=== PATIENT | male | born 1955 | race Caucasian/White ===

== ENCOUNTER 2024-09-19 14:04 | Emergency (ER) | payer MEDICARE, MEDICAID, SELFPAY ==
--- NOTE | 2024-09-19 14:16 | EDNOTE_ITS ---
ED General RME/HPI General Chief complaint: GI Bleed Stated complaint: HAVE A HEMMORHOID AND LOST ALOT OF BLOOD X AM Time Seen by Provider: 09/19/24 14:09 Arrival date/time: 09/19/24 14:04 RME / HPI RME / HPI narrative: DR. PAULSON MAIN ED EVALUATION: This section includes all my notes and documentations, including HPI, PE, and ED course.? Elio Paulson MD HPI: 69 year old male with past medical history significant for stomach ulcers and hemorrhoids for years presents to the Emergency Department with complaint of hemorrhoids with associated bleeding for a couple of weeks. No abdominal pain. No vomiting. No fever. Symptoms are moderate. No fevers or chills. No other complaints reported. ROS: All negative except as documented in HPI. Physical Exam: General:? Alert and oriented.? No acute distress when remaining still.? Eyes:? Conjunctivae and lids clear. ENT:? No nasal congestion.? ? Neck:? Supple. Heart:? RRR. Lungs:? No respiratory distress.? Good air movement.? No rhonchi, wheezing, rales.? Abdomen:? Soft and nontender.? Rectal: There are a lot of external hemorrhoids noted, no thrombosed hemorrhoids. Legs:? No clubbing, cyanosis, edema. Skin:? Warm and dry.? Neuro:? Alert and oriented X 3.? At this point, diagnoses include external hemorrhoids Recommended conservative treatment and more outpatient workup. Based on my best medical judgment, made decision no further evaluation or treatment indicated at this time.? Patient understands and agrees to the discharge instructions customized and printed, see below. Discharge instructions from Dr. Paulson: ?After evaluation, your symptoms are due to hemorrhoids.? ?Use Anusol suppositories for 2 weeks as prescribed to help heal your hemo rrhoids. ?During bowel movements, avoid pushing too hard which can cause hemorrhoids. ?To help prevent hard stools, increase oral fluid and maintain clear urine (if dark or yellow, increase oral fluid).? And increase every day exercising and eating fresh fruits and fresh vegetables. ?Sitz bath in warm water and Epsom salt for 15 minute 2 or 3 times daily until your hemorrhoids resolve. ?See a private doctor on 09/21/2024 for recheck and further care. To make sure there is no serious intra-abdominal condition, ask to help you get more care not available here in the ER.? Such as EGD or in the stomach, colonoscopy or scoping the colon, and a referral to see a barrel straightener. ?Seek immediate medical care with worsening or with any concerns. Elio Paulson MD Related Data Home Medications ?Medication ?Instructions ?Recorded ?Confirmed carvedilol 6.25 mg tablet 6.25 mg PO BID 06/25/1908/18 docusate sodium 250 mg capsule 250 mg PO QDAY 06/25/19 08/27/19 (DOK) losartan 100 mg tablet 100 mg PO QDAY 06/25/1908/18 metformin 500 mg tablet 500 mg PO BID 06/25/1908/27 Previous Rx's ?Medication ?Instructions ?Recorded hydrocodone 10 mg-acetaminophen 1 tab PO Q6H PRN Pain #40 tabs 08/29/19 325 mg tablet rivaroxaban 10 mg tablet (Xarelto) 10 mg PO Q24H #12 t abs 08/29/19 hydrocortisone acetate 25 mg 25 mg OR BID #24 ea 09/19 rectal suppository (Anusol-HC) Allergies Allergy/AdvReac Type Severity Reaction Status Date / Time No Known Allergies Allergy Verified 09/19/24 14:07 Course Quality Measures none Vital Signs Vital signs: Vital Signs Temperature 98.1 F 09/19/24 14:17 Pulse Rate 87 09/19/24 14:17 Respiratory Rate 16 09/19/24 14:17 Blood Pressure 122/77 09/19/24 14:17 Pulse Oximetry (%) 99 09/19/24 14:17 Oxygen Delivery Method Room Air 09/19/24 14:17 [facility] Patient data External records reviewed:: [facility] previous records (Reviewed last physical therapy note dated 09/29/20) Clinical information provided by:: patient Social determinants that could affect healthcare access:: none Patient has the following chronic illnesses:: stomach ulcers and hemorrhoids for years How is presenting disease/condition affected by chronic disease/condition?: exacerbated by Evaluation data The following diagnostics were reviewed and interpreted by me:: other (specify) (none) Lab and/or radiology exams considered but not ordered:: none Interpretation Summary: external hemorrhoids Medications Medications considered but not ordered:: none Medication administrations:: none Consultations Consultation(s) initiated? (list below): No Diagnosis Differential Diagnosis ED Complaint MDM: internal hemorrhoids, external hemorrhoids Most likely diagnosis given after review of the tests above:: external hemorrhoids Admission Indicated Admission indicated?: not indicated Explain why admission is indicated or not indicated:: There is no indication for admission. Admission Request Was there a request for admission?: No Disposition Plan Disposition Plan: Discharge Discharge Attestation Discharge Attestation: The patient and all family members were given an opportunity to ask questions and understood the discharge instructions. Discharge instructions specifically effects, indications for sooner follow up or return to the emergency department, and the expected course of current diagnosis. Patient condition: Stable Medical Decision Making MDM Narrative MDM Narrative: Sruthi Gamboa am scribing for and in the presence of Dr. Paulson. Differential Diagnosis Differential Diagnosis: internal hemorrhoids, external hemorrhoids Discharge Plan Plan Patient Disposition: HOME (Self Care) Prescriptions/Referrals Prescriptions/Med Rec: New hydrocortisone acetate [Anusol-HC] 25 mg suppository 25 mg OR BID Qty: 24 0RF No Action hydrocodone-acetaminophen 10-325 mg Tablet 1 tab PO Q6H MDD 6 PRN (Reason: Pain) Qty: 40 0RF Xarelto 10 mg Tablet 10 mg PO Q24H Qty: 12 0RF metformin 500 mg Tablet 500 mg PO BID docusate sodium [DOK] 250 mg Capsule 250 mg PO QDAY carvedilol 6.25 mg Tablet 6.25 mg PO BID losartan 100 mg Tablet 100 mg PO QDAY Problem List Clinical Impression: Hemorrhoids Patient/Caregiver Discharge Instructions Discharge Activity: activity as tolerated Education Materials: ED Hemorrhoids Additional Instructions: Discharge instructions from Dr. Paulson: ?After evaluation, your symptoms are due to hemorrhoids.? ?Use Anusol suppositories for 2 weeks as prescribed to help heal your hemorrhoids. ?During bowel movements, avoid pushing too hard which can cause hemorrhoids. ?To help prevent hard stools, increase oral fluid and maintain clear urine (if dark or yellow, increase oral fluid).? And increase every day exercising and eating fresh fruits and fresh vegetables. ?Sitz bath in warm water and Epsom salt for 15 minute 2 or 3 times daily until your hemorrhoids resolve. ?See a private doctor on 09/21/2024 for recheck and further care. To make sure there is no serious intra-abdominal condition, ask to help you get more care not available here in the ER.? Such as EGD or in the stomach, colonoscopy or scoping the colon, and a referral to see a barrel straightener. ?Seek immediate medical care with worsening or with any concerns. Instrucciones de zaria del Dr. Paulson: ?Despu?s de la evaluaci?n, alisa s?ntomas se deben a hemorroides. ?Use supositorios Anusol karlene 2 semanas seg?n lo prescrito para ayudar a curar alisa hemorroides. ?Karlene las evacuaciones intestinales, evite empujar demasiado amber, ya que puede causar hemorroides. ?Para ayudar a prevenir las heces duras, aumente el l?quido oral y mantenga la orina dulce (si es oscura o amarilla, aumente el l?quido oral). Y aumente todos los d?as el ejercicio y el consumo de frutas y verduras frescas. ?Ba?o de asiento en agua tibia y hima de Epsom karlene 15 minutos 2 o 3 veces al d?a hasta que se resuelvan alisa hemorroides. ?Consulte a un m?dico privado el 09/21/2024 para volver a controlarlo y recibir m?s atenci?n. Para asegurarse de que no haya surjit afecci?n intraabdominal grave, pida ayuda para obtener m?s atenci?n que no est? disponible aqu? en la rahat de emergencias, joshua EGD o en el est?karie, colonoscopia o endoscopia del colon y surjit derivaci?n para jordi a un gastroenter?logo. ?Busque atenci?n m?dica inmediata si empeora o tiene alguna inquietud. Print Language: Bulgarian Stand Alone Forms: Tiffanie Award Info., Patient Portal Info Letter
[2024-09-19 14:17] VITALS: BP 122/77; PULSE 87; RESP 16; TEMP 36.7; O2SAT 99
== END 2024-09-19 17:43 | disposition home or self-care (01) ==
LOC: SERX 14:40
PROVIDERS: Emergency Provider Emergency Medicine; PCP Family Medicine
DX: K64.9 Unspecified hemorrhoids (principal)
CPT/HCPCS: 99281

== ENCOUNTER → 2025-06-10 | Outpatient (CLI) | payer MEDICARE, MEDICAID, SELFPAY ==
--- NOTE | 2025-06-10 13:59 | XR_ITS ---
EXAMINATION: Left knee 2 views TECHNIQUE: AP lateral left knee 2 views Date and time: June 10, 2025, 1416 hours INDICATIONS: Left knee pain beginning 5 years ago. FINDINGS: Advanced tricompartment osteoarthritis Severe osteopenia. No fracture. Small knee effusion IMPRESSION: Advanced left knee tricompartment osteoarthritis
--- NOTE | 2025-06-10 13:59 | XR_ITS ---
EXAMINATION: Bilateral knees single view TECHNIQUE: AP bilateral standing knees single view Date and time: June 10, 2025, 1415 hours INDICATIONS: Left knee pain 5 years. FINDINGS: Severe osteopenia Total right knee arthroplasty with satisfactory alignment No loosening of the prosthetic components Severe narrowing medial lateral joint spaces left knee IMPRESSION: Severe narrowing medial lateral joint spaces left knee
== END | disposition home or self-care (01) ==
PROVIDERS: PCP Family Medicine; Referring Provider Family Medicine; Visit Provider Family Medicine
DX: M17.12 Unilateral primary osteoarthritis, left knee (principal); M25.862 Other specified joint disorders, left knee
CPT/HCPCS: 73560; 73565

== ENCOUNTER 2025-06-29 18:23 | Inpatient (IN) | payer MEDICARE, MEDICAID, SELFPAY ==
[2025-06-29] VITALS (7 sets, daily range): BP systolic 157–201; BP diastolic 87–109; PULSE 85–104; RESP 14–95; TEMP 36.4–37.7; O2SAT 96–98
--- NOTE | 2025-06-29 18:32 | EKG_ITS ---
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
--- NOTE | 2025-06-29 18:34 | PD.EDADULT ---
ED General RME/HPI General Chief complaint: GI Bleed Stated complaint: WEAKNESS Time Seen by Provider: 06/29/25 18:28 Arrival date/time: 06/29/25 18:23 70-year-old male patient with significant history of hypertension, history of upper GI bleed in the past, history of chronic alcoholism, was brought in by EMS for evaluation regarding generalized body weakness. Apparently patient was crawling, and becoming so weak and instead was lying in the floor since last night. Family visited the patient since he was not answering the phone today. And calling EMS. When the EMS arrived patient was noted to have melanotic stool scattered all over the floor. Patient is awake and alert GCS of 15 however very drowsy. Patient denies any abdominal pain. Denies any other complaints patient is able to move the upper and lower extremity without any limitation. Related Data Home Medications ?Medication ?Instructions ?Recorded ?Confirmed carvedilol 6.25 mg tablet 6.25 mg PO BID 06/25/19 08/27/19 docusate sodium 250 mg capsule 250 mg PO QDAY 06/25/19 08/27/19 (DOK) losartan 100 mg tablet 100 mg PO QDAY 06/25/19 08/27/19 metformin 500 mg tablet 500 mg PO BID 06/25/19 08/27/19 Previous Rx's ?Medication ?Instructions ?Recorded hydrocodone 10 mg-acetaminophen 1 tab PO Q6H PRN Pain #40 tabs 08/29/19 325 mg tablet rivaroxaban 10 mg tablet (Xarelto) 10 mg PO Q24H #12 tabs 08/29/19 hydrocortisone acetate 25 mg 25 mg AR BID #24 ea 09/19/24 rectal suppository (Anusol-HC) Allergies Allergy/AdvReac Type Severity Reaction Status Date / Time No Known Allergies Allergy Verified 06/29/25 18:52 Review of Systems Review of Systems Narrative Review of Systems: Review of system reviewed and within normal limits except mentioned in HPI ED Exam Narrative Physical exam: VITAL SIGNS: Reviewed. GENERAL APPEARANCE: Alert and interactive, follows commands, no acute distress, HEAD AND FACE: Non-traumatic. ENT: PERRL, pale conjunctiva, eyelid no trauma, Mucous membrane moist. NECK: Supple, nontender, no nuchal rigidity. CHEST: No tenderness, no crepitus, no paradoxical movement, no retractions. LUNGS: Clear, well ventilated, symmetric, no rales, no wheezing, no ronchi, no stridor, good breath sounds bilaterally. HEART: Regular rate, regular rhythm, no murmur, no gallops. ABDOMEN: Soft, positive bowel sounds, nondistended, no guarding, nontender, no rebound, no masses, RECTAL: Deferred. GENITAL: Deferred. NEUROLOGICAL: Gross motor function intact sensory function intact, Appropriate for age. MUSCULOSKELETAL: low back nontender, full range of motion. EXTREMITIES: Nontender, full range of motion. SKIN: Color pale, dry, no rash, no lacerations, no abrasions, no contusions. LYMPHATICS: Deferred. Course Quality Measures none Orders Category Date Time Status COVID-19 Screening Questionnaire NOW Care 06/29/25 20:34 Active Decision to Admit X1 Care 06/29/25 20:34 Active EKG (ED ONLY) *Do not use* NOW Care 06/29/25 18:32 Completed Endoscopy Consents .On arrival Care 06/29/25 20:36 Active Endoscopy Consents .On arrival Care 06/29/25 20:37 Active NPO NOW Care 06/29/25 20:31 Active NPO after Midnight ONCE Care 06/29/25 20:36 Active NPO after Midnight ONCE Care 06/29/25 20:37 Active Occult Blood,Stool (Nursing) NOW Care 06/29/25 18:32 Active Transfuse,blood/blood products ONCE Care 06/29/25 20:10 Active Consult to Gastroenterology Stat Cons 06/29/25 20:11 Ordered Diet NPO (NOW) Diet 06/29/25 20:31 Active Diet NPO after Midnight Diet 06/30/25 00:01 Active Diet NPO after Midnight Diet 06/30/25 00:01 Active EKG (ED Only) Stat Exams 06/29/25 18:32 Draft CBC Stat Lab 06/29/25 19:13 Completed CK [Creatine Kinase] Stat Lab 06/29/25 19:13 Completed Comprehensive Metabolic Panel Stat Lab 06/29/25 19:13 Completed Partial Thromboplastin Time Stat Lab 06/29/25 19:13 Completed Prothrombin Time with INR Stat Lab 06/29/25 19:13 Completed Troponin I Stat Lab 06/29/25 19:13 Completed Type and Screen Stat Lab 06/29/25 19:13 Results Urinalysis Stat Lab 06/29/25 18:32 Ordered prbc [Red Blood Cells] Stat Lab 06/29/25 19:13 Results Octreotide Acet Inj [SandoSTATIN Inj] Med 06/29/25 18:32 Discontinued 50 mcg IV X1 ONE Pantoprazole Inj [Protonix Inj] Med 06/29/25 18:32 Discontinued 80 mg IVP X1 ONE Ringers Lactated 1000 ml [Lactated Ringers] 1,000 ml Med 06/29/25 18:32 Discontinued IV 999 mls/hr Sodium Chloride 0.9% [Ns] 100 ml Med 06/29/25 18:33 Active Octreotide Acet Inj [SandoSTATIN Inj] 1,000 mcg IV 50 mcg/hr Vital Signs Vital signs: Vital Signs Temperature 99.8 F 06/29/25 18:28 Pulse Rate 104 H 06/29/25 18:28 Respiratory Rate 18 06/29/25 18:28 Blood Pressure 157/90 H 06/29/25 18:28 Pulse Oximetry (%) 97 06/29/25 18:28 Oxygen Delivery Method Room Air 06/29/25 18:28 Discharge Plan Plan Patient Disposition: Admit Acute Care w/in Hospital Discharge Disposition comment: Guarded Prescriptions/Referrals Prescriptions/Med Rec: No Action hydrocodone-acetaminophen 10-325 mg Tablet 1 tab PO Q6H MDD 6 PRN (Reason: Pain) Qty: 40 0RF Xarelto 10 mg Tablet 10 mg PO Q24H Qty: 12 0RF metformin 500 mg Tablet 500 mg PO BID docusate sodium [DOK] 250 mg Capsule 250 mg PO QDAY carvedilol 6.25 mg Tablet 6.25 mg PO BID losartan 100 mg Tablet 100 mg PO QDAY hydrocortisone acetate [Anusol-HC] 25 mg suppository 25 mg AR BID Qty: 24 0RF Referrals: Jean Marie Robledo MD [Primary Care Provider, Family Practice] - In 1 week Problem List Clinical Impression: Anemia, Acute upper GI bleed Patient/Caregiver Discharge Instructions Print Language: Mosotho Stand Alone Forms: Tiffanie Award Info., Patient Portal Info Letter MDM Narrative MDM hospital course (for use when minimal MDM required): 70-year-old male patient with significant history of hypertension, history of upper GI bleed in the past, history of chronic alcoholism, was brought in by EMS for evaluation regarding generalized body weakness. Apparently patient was crawling, and becoming so weak and instead was lying in the floor since last night. Family visited the patient since he was not answering the phone today. And calling EMS. When the EMS arrived patient was noted to have melanotic stool scattered all over the floor. Patient is awake and alert GCS of 15 however very drowsy. Patient denies any abdominal pain. Denies any other complaints patient is able to move the upper and lower extremity without any limitation. Patient's hemoglobin was noted to be 7.6, hematocrit of 23. CMP creatinine 1.6 BUN of 36 total creatinine kinase 683. EKG showed sinus tachycardia, ventricular to 104 bpm, no ST segment elevation depression noted. Patient received Protonix IV, Sandostatin IV bolus and currently on Sandostatin drip. Spoke with Dr. Mckeon, GI specialist on-call, who advised me to keep the patient n.p.o. and for endoscopy in the morning Case discussed with hospitalist, who admitted the patient. Medication Administration(s) Medication Administration History Octreotide Acetate 1,000 mcg/ (Sodium Chloride) 102 mls @ 5.1 mls/hr IV .Q20H [facility]; Protocol Stop: 07/04/25 18:33 Last Admin: 06/29/25 19:40 Dose: 50 mcg/hr, 5.1 mls/hr Documented By: BLAKE Discontinued Medications Lactated Ringer's (Lactated Ringers) 1,000 mls @ 999 mls/hr IV .Q1H1M ONE Stop: 06/29/25 19:32 Last Admin: 06/29/25 19:43 Dose: 999 mls/hr Documented By: BLAKE Octreotide Acetate (Octreotide Acet Inj 50 Mcg/Ml Vial) 50 mcg IV X1 ONE Stop: 06/29/25 18:33 Last Admin: 06/29/25 19:39 Dose: 50 mcg Documented By: BLAKE Pantoprazole Sodium (Pantoprazole Inj 40 Mg Vial) 80 mg IVP X1 ONE Stop: 06/29/25 18:33 Last Admin: 06/29/25 19:39 Dose: 80 mg Documented By: BLAKE Diagnosis Differential Diagnosis ED Complaint MDM: Upper GI bleed, anemia, generalized weakness chronic alcoholism Diagnoses ruled out and/or further discussions: Anemia, upper GI bleed
[2025-06-29] MEDS: OCTREOTIDE ACET INJ 50 mCg/ML VIAL IV (19:39)
[2025-06-29] MEDS: OCTREOTIDE ACET INJ 1,000 MCG in SODIUM CHLORIDE 0.9% 100 ML 5.1 MCG IV (19:40)
[2025-06-29] MEDS: RINGERS LACTATED 1000 ML 1,000 ML 999 ML IV (19:43)
[2025-06-29 20:01] LABS: Basophils # (Auto) 0.0 Thou/mm3 (0.0-0.2); Basophils % (Auto) 0 % (0-2.5); Eosinophils # (Auto) 0.0 Thou/mm3 (0.0-0.5); Eosinophils % (Auto) 0 % (0-10); Hematocrit 23.0 % (41.0-53.0); Immature Granulocytes Auto 0.06 Thou/mm3 (0.00-0.00); Lymphocytes # (Auto) 1.1 Thou/mm3 (1.0-4.8); Lymphocytes % (Auto) 9 % (10-50); Mean Corpuscular HGB Conc 33.0 g/dl (31.0-37.0); Mean Corpuscular Hemoglobin 23.8 pg (25.0-35.0); Mean Corpuscular Volume 72 fL (80-100); Monocytes # (Auto) 1.0 Thou/mm3 (0.0-0.8); Monocytes % (Auto) 8 % (0-12); Neutrophils # (Auto) 10.4 Thou/mm3 (1.8-7.7); Neutrophils % (Auto) 82 % (37-80); Nucleated Red Blood Cell # 0.00 Thou/mm3 (0.00-0.00); Nucleated Red Blood Cell % 0 /100 WBC (0); Platelet Count 229 Thou/mm3 (140-440); RDW Standard Deviation 50.4 fL (35.1-43.9); Red Blood Count 3.19 Miln/mm3 (4.50-5.90); White Blood Count 12.6 Thou/mm3 (3.8-10.6)
[2025-06-29 20:02] LABS: Hemoglobin 7.6 g/dL (13.5-16.0)
[2025-06-29 20:16] LABS: INR 1.1 (0.9-1.3); Partial Thromboplastin Time 24.2 Seconds (22.0-36.0); Prothrombin Time 11.5 Seconds (9.0-12.2)
[2025-06-29 20:19] LABS: Alanine Aminotransferase 12 U/L (10-49); Albumin, Serum 4.5 gm/dL (3.4-4.8); Albumin/Globulin Ratio 1.7 (1.2-2.2); Alkaline Phosphatase 58 U/L (46-116); Anion Gap 18 (7-16); Aspartate Amino Transferase 31 U/L (0-34); BUN/Creatinine Ratio 23 Ratio (12-20); Bilirubin,Total 0.5 mg/dL (0.3-1.2); Blood Urea Nitrogen 36 mg/dL (9-23); Calcium 9.2 mg/dL (8.3-10.6); Calcium (Corrected) 9.2 mg/dL (8.5-10.1); Carbon Dioxide 20.3 mMol/L (20.0-31.0); Chloride 105 mMol/L (98-107); Creatine Kinase 683 U/L (34-171); Creatinine (Component) 1.6 mg/dL (0.6-1.3); Globulin 2.7 gm/dL (2.3-3.5); Glucose 197 mg/dL (74-106); Osmolality,Calculated 298 (275-295); Potassium 4.4 mMol/L (3.4-5.1); Sodium 143 mMol/L (136-145); Total Protein 7.2 gm/dL (5.7-8.2); Troponin I 0.044 ng/mL (0.0-0.045); eGFR 47 See Note
--- NOTE | 2025-06-29 20:36 | PD.IMCONS ---
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 for clinical presentation of melena patient family had called 911 and patient was found flat on the floor with melanotic stools everywhere he does have a history of alcohol consumption as well as previous history of GI bleed He has also have underlying history of diabetes mellitus type 2 hypertension CVA as well as on blood thinners cc:: cc: Review of Systems Review of Systems ROS Unobtainable: unobtainable due to medical condition Past Medical History Surgical History OTHER SURGICAL HX: As in the history of present illness Meds Home Medications and Allergies Home Medications ?Medication ?Instructions ?Recorded ?Confirmed ?Type carvedilol 6.25 mg tablet 12.5 mg PO BID 06/25/19 06/30/25 History losartan 100 mg tablet 100 mg PO QDAY 06/25/19 06/30/25 History metformin 500 mg tablet 1,000 mg PO BID 06/25/19 06/30/25 History amlodipine 10 mg tablet 10 mg PO DAILY 06/30/25 06/30/25 History hydrochlorothiazide 25 mg tablet 25 mg PO DAILY 06/30/25 06/30/25 History omeprazole 20 mg capsule,delayed 20 mg PO DAILY 06/30/25 06/30/25 History release semaglutide 3 mg tablet (Rybelsus) 3 mg PO DAILY 06/30/25 06/30/25 History sitagliptin phosphate 50 mg tablet 50 mg PO DAILY 06/30/25 06/30/25 History (Andrewuvia) Allergies Allergy/AdvReac Type Severity Reaction Status Date / Time No Known Allergies Allergy Verified 06/29/25 18:52 Exam Vital Signs Temp Pulse Resp BP Pulse Ox O2 Del Method 99.9 F 98 16 191/87 H 98 Room Air 06/29/25 20:31 06/29/25 20:31 06/29/25 20:31 06/29/25 20:31 06/29/25 20:31 06/29/25 20:31 Constitutional Comments: Chronically ill-appearing Routine Respiratory Exam Comments: Normal to auscultation Routine Abdominal Exam Comments: Positive bowel sounds Results Labs 07/03/25 05:15 07/03/25 05:15 Labs: Short CBC 06/29/25 Range/Units 19:13 WBC 12.6 H (3.8-10.6) Thou/mm3 Hgb 7.6 L (13.5-16.0) g/dL Hct 23.0 L (41.0-53.0) % Plt Count 229 (140-440) Thou/mm3 BMP 06/29/25 19:13 Sodium 143 Potassium 4.4 Chloride 105 Carbon Dioxide 20.3 BUN 36 H Creatinine 1.6 H Glucose 197 H Calcium 9.2 Cardiac Enzymes 06/29/25 Range/Units 19:13 Total Creatine Kinase 683 H (34-171) U/L Troponin I 0.044 (0.0-0.045) ng/mL Liver Function 06/29/25 Range/Units 19:13 Total Bilirubin 0.5 (0.3-1.2) mg/dL AST 31 (0-34) U/L ALT 12 (10-49) U/L Alkaline Phosphatase 58 (46-116) U/L Albumin 4.5 (3.4-4.8) gm/dL Assessment and Plan Additional Assessment & Plan Additional Plan: # Acute GI bleed in the form of melena and the patient with previous history of alcohol consumption Suggestions Initial test fiberoptic esophagogastroduodenoscopy possible therapeutic intervention under intravenous moderate sedation consent obtained and placed-schedule In case the EGD is negative we will consider doing a fiberoptic colonoscopy prior to discharge Thank you very much for the opportunity to participate in the care of this patient other medical problems include diabetes mellitus type 2 essential hypertension CVA
[2025-06-29 20:50] LABS: Collection Type, Urine Clean Catch; Squamous Epithelial Cell,Urine 0 /hpf (0-5)
[2025-06-29 21:00] LABS: Bilirubin,Urine Negative (Negative); Blood,Urine 3+ (Negative); Color,Urine Orange (Lt Yel-Yel); Glucose, Urine Negative (Negative); Ketones,Urine Negative (Negative); Leukocyte Esterase,Urine Positive (Negative); Nitrite,Urine Positive (Negative); PH,Urine 5.0 (5.0-7.0); Protein,Urine 1+ (Neg - Trace); RBC,Urine < 1 /hpf (0-3); Specific Gravity,Urine 1.015 (1.001-1.035); Urobilinogen,Urine Negative mg/dL (0.0-1.0); WBC,Urine < 1 /hpf (0-5)
[2025-06-29 21:02] LABS: Clarity,Urine Turbid (Clear/Hazy)
--- NOTE | 2025-06-29 21:09 | ESHP_ITS ---
<Statement entered by Owen Delgado MD - 06/29/25 22:03> A 70-year-old male with significant past medical history of diabetes mellitus, hypertension, CVA, diverticulosis, chronic inactive gastritis, chronic alcoholic, history of upper GI bleed in 2019 with last colonoscopy done in 2019 that showed hemorrhoids, diverticulosis, upper GI endoscopy and 2018 that showed moderate gastritis, distal esophagitis presented to the hospital with chief complaints of bleeding per rectum since 2 days. Reported the bleeding is painless and noted to have severe dizziness for which he came to the hospital. Also reported that he had 3-4 episodes of vomiting without any blood. Denies pain medications, aspirin, Plavix usage. But noted to have naproxen refilled on 06/10/2025. Vitals at the time of admission are blood pressure 157/90 mmHg, pulse rate 104 bpm. Physical examination remains unremarkable except for blood noted from the anal region. Labs at the time of admission are significant for WBC 12.6, hemoglobin 7.6, MCV 72, MCH 23.8. Coagulation panel is within normal limits. Chemistry is significant for anion gap 18, BUN 36, creatinine 1.6. Baseline creatinine is 1 and 2020. 2 PRBC is ordered by the ED physician but patient noted to have antibodies for which the blood was ordered from the [facility]. Patient will be admitted to the hospital for upper GI bleed, RAFFI and we will start him on CIWA protocol. Consulted grants officer, Dr. Mckeon and he recommended pantoprazole, octreotide drip. Will keep him n.p.o. Started on IV fluids, 1 L bolus is given and will start on IV maintenance fluids. # GI bleed, likely diverticulosis versus internal hemorrhoids based on previous history - Had previous history of divericulosis and internal hemorrhoids. Had h/o constipation - Pantoprazole 80 mg IV push and 40 mg IV every 48 hourly. - N.p.o. GI consulted is consulted - Started on IV fluids - Octreotide in the setting of alcohol abuse and ceftriaxone 1gm for prophylaxis - Liver ultrasound to rule out cirrhosis - 2 PRBC transfusion in view of low hemoglobin, 7.6 - Will order iron panel in view of microcytic hypochromic anemia # Leukocytosis, likely secondary to hemoconcentration in the setting of vomitings and diarrheal episode secondary to GI bleed. - Will continue fluids - No suspicion of infection at this point - Will continue to monitor CBC # Non-anion gap metabolic acidosis # Acute kidney injury, likely prerenal - Patient reported that he had 3-4 episodes of vomiting and multiple episodes of diarrhea - Was given a liter of bolus and started on IV fluids - Will continue to monitor renal panel and avoid nephrotoxic medications - Strict I&O's # Chronic alcohol disorder - 1 dose of IV push thiamine 100 mg is given - Will start on CIWA protocol to treat alcohol withdrawal # Diabetes mellitus - A1c is ordered - Will start on insulin sliding scale # Hypertension - Blood pressure at the time of admission is 157/90 mmHg - Will hold blood pressure medications for now I have personally seen and examined the patient, agree with residents assessment and plan Patient plan of care was discussed with the attending physician, Dr. Paulina Delgado, PGY2 Documentation for date of: 06/29/25 HPI History of Present Illness Chief complaint: Generalized weakness History of present illness: The patient is a 70-year-old male with a history of T2DM, hypertension, chronic alcohol use, diverticulosis, hemorrhoids, CVA (2017) and status post right knee replacement (08/27/2019) who presented to [facility] ED on 06/29 from home for generalized weakness and dark bloody bowel movement. Patient was admitted for management of GI bleed. The patient stated that he had a large, dark bloody bowel movement that started yesterday. The patient was unsure how many bowel movements he had, only stating that it was a lot, and several times he would have bowel incontinence. Patient initially brushed it off as it has happened in the past, and he thought that it would just get better, however the patient's family member on the patient lying on the floor with melanotic stool all over the floor. Concern, EMS was called, who assessed the patient as being very drowsy with a GCS of 15, and so the patient was brought over to [facility] for further care. The patient had previously been seen at [facility] back in 2018 for a similar issue, and had previously required blood transfusions due to low hemoglobin as result of this issue. Colonoscopy at that time showed blood throughout the colon only up to the cecum, suspected diverticular source of bleeding given scattered diverticulosis found at that time. Follow-up endoscopy at that time showed only mild gastritis. The patient's GI bleed at the time was contribute to the patient taking aspirin and Plavix due to recent CVA. The patient had another episode of GI bleed back in 2019, with follow-up colonoscopy showing only diverticulosis and internal hemorrhoids and was recommended to have outpatient referral to colorectal surgeon for banding of the internal hemorrhoids. The patient states that because of his diarrhea, the patient was unable to take his morning medications. He denies any fever, headache, chest pain, shortness of breath, abdominal pain, and dysuria. The patient does endorse chills, vomiting (without blood), and had a syncopal episode. Examination of the patient's rectum shows dark red dried blood surrounding the rectum. The patient was noted to be slightly confused, but was alert oriented and oriented x 4. The patient did seem to respond very slowly and would sometimes respond inappropriately to questioning. The patient states that he does drink about 2 or 3 beers a day, every day, for many years, and his last drink was around 4 PM yesterday. ED course: Patient presented with vital significant for blood pressure of 157/90 and heart rate 104. Initial labs significant for WBC 12.6, hemoglobin 7.6, BUN 36, and creatinine 1.6. GI consulted, recommended admission for further evaluation. Patient was given Protonix 80 mg, octreotide 50 mcg, started on octreotide drip, and given 1 L LR. Current Medication(s): Pending med rec Allergies (w/ Reactions): NKDA Family History: Noncontributory Alcohol Intake: 2-3 beers daily, many years, unspecified duration, last drink 4 PM yesterday Tobacco/Vape Use: Patient denies Other Drug Use: Patient denies Review of Systems Review of Systems Systems Reviewed: All systems reviewed, normal except as documented Exam Vital Signs Temp Pulse Resp BP Pulse Ox O2 Del Method 99.9 F 98 16 191/87 H 98 Room Air 06/29/25 20:31 06/29/25 20:31 06/29/25 20:31 06/29/25 20:31 06/29/25 20:06/29/25 20:31 Narrative Exam Physical Exam: General: Sleepy, no acute distress. Skin: Warm, dry, intact. Head: Normocephalic, atraumatic. Eye: Normal conjunctiva, PERRL. Throat: Oral mucosa dry. No obvious lesions in oropharynx. Cardiovascular: Regular rate and rhythm, no murmur, +S1/S2. Respiratory: Lungs are clear to auscultation, respirations unlabored, no crackles, no wheezing. Gastrointestinal: Soft, nontender, non-distended. No guarding or rebound tenderness. Dried dark red blood around rectum and gluteal region. Extremities: No edema, no cyanosis, no clubbing. All extremities cool to touch. 2+ radial pulse bilaterally, 2+ pedal pulse bilaterally. Neuro: No focal deficits observed. Conversant, moving all extremities. No overt cerebellar signs/incoordination. Psychiatric: Cooperative, flat affect. Slow to respond and tangential speech periodically. Results: Labs 06/30/25 02:53 06/30/25 02:53 Labs: Short CBC 06/29/25 Range/Units 19:13 WBC 12.6 H (3.8-10.6) Thou/mm3 Hgb 7.6 L (13.5-16.0) g/dL Hct 23.0 L (41.0-53.0) % Plt Count 229 (140-440) Thou/mm3 BMP 06/29/25 19:13 Sodium 143 Potassium 4.4 Chloride 105 Carbon Dioxide 20.3 BUN 36 H Creatinine 1.6 H Glucose 197 H Calcium 9.2 Cardiac Enzymes 06/29/25 Range/Units 19:13 Total Creatine Kinase 683 H (34-171) U/L Troponin I 0.044 (0.0-0.045) ng/mL Liver Function 06/29/25 Range/Units 19:13 Total Bilirubin 0.5 (0.3-1.2) mg/dL AST 31 (0-34) U/L ALT 12 (10-49) U/L Alkaline Phosphatase 58 (46-116) U/L Albumin 4.5 (3.4-4.8) gm/dL Urine 06/29/25 Range/Units 20:43 Urine Color [place] A (Lt Yel-Yel) Urine Clarity Turbid A (Clear/Hazy) Urine pH 5.0 (5.0-7.0) Ur Specific [place] 1.015 (1.001-1.035) Urine Protein 1+ A (Neg - Trace) Urine Glucose (UA) Negative (Negative) Quality Measures Quality Measures VTE prophylaxis Advance care planning discussed with:: patient and child Medications Home Medications and Allergies Home Medications ?Medication ?Instructions ?Recorded ?Confirmed ?Type carvedilol 6.25 mg tablet 12.5 mg PO BID 06/25/1906/17 History docusate sodium 250 mg capsule 250 mg PO QDAY 06/25/19 06/30/25 History (DOK) losartan 100 mg tablet 100 mg PO QDAY 06/25/1906/17 History metformin 500 mg tablet 1,000 mg PO BID 06/25/19 History amlodipine 10 mg tablet 10 mg PO DAILY 06/30/2506/17 History hydrochlorothiazide 25 mg tablet 25 mg PO DAILY 06/30/25 History naproxen 500 mg tablet 500 mg PO Q2H PRN pain 06/3006/30/25 History omeprazole 20 mg capsule,delayed 20 mg PO DAILY 06/30/25 History release semaglutide 3 mg tablet (Rybelsus) 3 mg PO DAILY 06/3006/30/25 History sitagliptin phosphate 50 mg tablet 50 mg PO DAILY 06/1706/30/25 History (Andrewuvia) Allergies Allergy/AdvReac Type Severity Reaction Status Date / Time No Known Allergies Allergy Verified 06/29/25 18:52 Visit Medications Octreotide Acetate 1,000 mcg/ (Sodium Chloride) 102 mls @ 5.1 mls/hr IV .Q20H SCOTTY; Protocol Stop: 07/04/25 18:33 Last Admin: 06/29/25 19:40 Dose: 50 mcg/hr, 5.1 mls/hr Discontinued Medications Lactated Ringer's (Lactated Ringers) 1,000 mls @ 999 mls/hr IV .Q1H1M ONE Stop: 06/29/25 19:32 Last Admin: 06/29/25 19:43 Dose: 999 mls/hr Octreotide Acetate (Octreotide Acet Inj 50 Mcg/Ml Vial) 50 mcg IV X1 ONE Stop: 06/29/25 18:33 Last Admin: 06/29/25 19:39 Dose: 50 mcg Pantoprazole Sodium (Pantoprazole Inj 40 Mg Vial) 80 mg IVP X1 ONE Stop: 06/29/25 18:33 Last Admin: 06/29/25 19:39 Dose: 80 mg Assessment & Plan Plan The patient is a 70-year-old male with a history of T2DM, hypertension, chronic alcohol use, diverticulosis, hemorrhoids, CVA (2017) and status post right knee replacement (08/27/2019) who presented to [facility] ED on 06/29 from home for generalized weakness and dark bloody bowel movement. Patient was admitted for management of GI bleed. #GI bleed, more likely lower than upper #Acute anemia, microcytic #History of diverticulosis with diverticular bleeding #History of internal hemorrhoids Patient noted that he started to having dark bloody bowel movements on 06/28. His bowel movements have been numerous and the patient does not know how many he has had, but it is associated with bowel incontinence. Patient denies any pain with these episodes but does endorse an episode of syncope. Patient does have a history of lower GI bleed secondary to suspected diverticular bleed and internal hemorrhoids. On admission, patient was noted to have mildly dark red crusted blood surrounding his rectum and gluteal region. Diagnostic: Colonoscopy on 06/26/2019 shows hemorrhoids (nonbleeding) and diverticulosis Endoscopy on 07/03/2018 shows moderate gastritis and distal esophagitis Colonoscopy on 07/01/2018 shows blood throughout colon although at the cecum, most likely diverticular source of bleeding given his scattered diverticulosis throughout the colon with 2+ internal hemorrhoids Hemoglobin on admission 7.6 with MCV 72 Iron panel ordered, pending Treatment: GI consulted, appreciate recommendations PRBC ordered, patient noted to have antibody requiring blood from [facility], unable to transfuse at this time Protonix 40 mg twice daily Octreotide drip Patient made n.p.o. Ceftriaxone 1 g daily for GI bleed infection prophylaxis (06/29?) #Chronic alcohol use #Alcohol withdrawal? Patient endorses a longstanding history of alcohol use, 2-3 beers per day. The patient's last drink noted to be 4 PM on 06/28. Patient did show signs of confusion and slow speech on admission, but otherwise denies any other markers of alcohol withdrawal. Treatment: [facility] protocol Folic acid 1 mg twice daily Thiamine 100 mg twice daily Liver ultrasound ordered to assess for liver cirrhosis, pending #Acute kidney injury, likely prerenal #Uremia #HAGMA #Lactic acidosis Patient noted to have elevated creatinine from baseline of 0.9-1.0 on admission. Likely secondary to acute GI bleed. Diagnostic: Creatinine on admission 1.6 BUN on admission 36 Lactic acid on admission 2.6 Treatment: IV fluid resuscitation Avoid nephrotoxic drugs, renally dose medications Lactic acidosis likely contributed to by alcohol consumption and possible metformin use (pending med rec) Trend lactic acid until within normal limits #Leukocytosis, likely reactive Patient found to have WBC of 12.6 on admission. No systemic symptoms. Likely reactive from his diarrhea and active GI bleed. Treatment: Continue to monitor, expect improvement with management of GI bleed and resolution of diarrhea #Type 2 diabetes mellitus, not insulin-dependent? Restarted patient history. Prescription records does not show any insulin prescription, so patient is most likely not insulin-dependent, pending med rec. Treatment: Sliding scale insulin Bedside glucose checks every 6 hours due to n.p.o. Hemoglobin A1c ordered, pending #History of hypertension, primary Patient does have history of hypertension, to which the patient does not know what he takes. Patient states that he did not take his medication on the morning before he was admitted. Treatment: Pending med rec Consider starting amlodipine 10 mg daily, hydrochlorothiazide 25 mg daily, and/or carvedilol 12.5 mg twice daily as identified on recent prescriptions #History of right knee osteoarthritis #Status post right knee total arthroplasty Patient noted to have this procedure done back in 08/27/2019. According to outside pharmacy data, the patient recently had a refill of his naproxen, however the patient denies taking any NSAIDs. Treatment: Pending med rec If patient is taking naproxen at home, will recommend cessation until further evaluation outpatient once stabilized and discharged DVT Prophylaxis: SCDs GI Prophylaxis: Protonix Bowel: N/A Diet: NPO Bentley: N/A Lines: PIV Antibiotics: Ceftriaxone Code Status: FULL Reason for Hospitalization: GI bleed Other Barriers to Discharge: Endoscopy/Colonoscopy Patient plan of care was discussed with the senior resident Dr. Delgado (PGY-2) and attending physician Dr. Pauilna Chua, PGY1 Attending Provider Attestation/Addendum After examination of the patient and review of the clinical data I feel that this patient needs admission to the hospital for further treatment/evaluation. Plan of care discussed with patient and is in agreement. I Betsy Gallardo MD, attest that I was physically present for salcedo portions of evaluation, and examined patient, labs and imagings and plan of care were discussed with IM residents team, and I agree with the findings and plans documented above.
--- NOTE | 2025-06-29 21:21 | XR_ITS ---
Examination: Abdomen sonogram, Limited Date and time of exam: June 29, 2025, 1156 hours INDICATIONS: Abdominal pain today Technique: Real-time beavers scale transabdominal sonographic images of the upper abdomen obtained. Findings: Negative for gallstones Gallbladder wall 0.3 cm no edema Common bile duct 0.2 cm no stones Pancreas obscured by bowel gas Liver 16.7 cm fatty infiltration Normal hepatopetal portal venous flow Patent IVC IMPRESSION: Negative for cholelithiasis, negative for cholecystitis Normal common bile duct Mild hepatomegaly
[2025-06-29 21:53] LABS: Lactate (Lactic Acid) 2.6 mMol/L (0.4-2.0)
[2025-06-29] MEDS: THIAMINE INJ 100 MG/ML VIAL 2 ML IVP (22:00)
[2025-06-29] MEDS: cefTRIAXone/D5w 1gm IV premix 1 GM/50 ML BAG IV (23:24)
[2025-06-30] VITALS (16 sets, daily range): BP systolic 167–216; BP diastolic 78–126; PULSE 72–87; RESP 14–95; TEMP 36.6–37.5; O2SAT 93–98
[2025-06-30 00:52] LABS: Reflex Lactate? Y
[2025-06-30 01:27] LABS: Lactic Acid, 3 HR 1.7 mMol/L (0.4-2.0)
[2025-06-30 02:20] LABS: Hematocrit 24.0 % (41.0-53.0)
[2025-06-30 02:22] LABS: Hemoglobin 7.6 g/dL (13.5-16.0)
[2025-06-30 03:18] LABS: Lactate (Lactic Acid) 1.9 mMol/L (0.4-2.0)
[2025-06-30 03:20] LABS: Basophils # (Auto) 0.0 Thou/mm3 (0.0-0.2); Basophils % (Auto) 0 % (0-2.5); Eosinophils # (Auto) 0.0 Thou/mm3 (0.0-0.5); Eosinophils % (Auto) 0 % (0-10); Hematocrit 24.1 % (41.0-53.0); Immature Granulocytes Auto 0.04 Thou/mm3 (0.00-0.00); Lymphocytes # (Auto) 0.8 Thou/mm3 (1.0-4.8); Lymphocytes % (Auto) 9 % (10-50); Mean Corpuscular HGB Conc 32.0 g/dl (31.0-37.0); Mean Corpuscular Hemoglobin 23.9 pg (25.0-35.0); Mean Corpuscular Volume 75 fL (80-100); Monocytes # (Auto) 0.9 Thou/mm3 (0.0-0.8); Monocytes % (Auto) 10 % (0-12); Neutrophils # (Auto) 6.6 Thou/mm3 (1.8-7.7); Neutrophils % (Auto) 80 % (37-80); Nucleated Red Blood Cell # 0.00 Thou/mm3 (0.00-0.00); Nucleated Red Blood Cell % 0 /100 WBC (0); Platelet Count 187 Thou/mm3 (140-440); RDW Standard Deviation 53.7 fL (35.1-43.9); Red Blood Count 3.22 Miln/mm3 (4.50-5.90); White Blood Count 8.3 Thou/mm3 (3.8-10.6)
[2025-06-30 03:21] LABS: Hemoglobin 7.7 g/dL (13.5-16.0)
[2025-06-30 03:36] LABS: Iron 21 mcg/dL (65-175); Percent Iron Saturation 6 % (20-55); Total Iron Binding Capacity 338 mcg/dL (250-425); Unsaturated Iron Binding 317 (225-295)
[2025-06-30 03:41] LABS: Glucose Estimated Average 212 mg/dL (80-131); Hemoglobin A1C 9.0 % Hgb (4.8-6.0)
[2025-06-30 03:43] LABS: Alanine Aminotransferase 12 U/L (10-49); Albumin, Serum 4.3 gm/dL (3.4-4.8); Albumin/Globulin Ratio 1.7 (1.2-2.2); Alkaline Phosphatase 54 U/L (46-116); Anion Gap 14 (7-16); Aspartate Amino Transferase 38 U/L (0-34); BUN/Creatinine Ratio 26 Ratio (12-20); Bilirubin,Total 0.6 mg/dL (0.3-1.2); Blood Urea Nitrogen 36 mg/dL (9-23); Calcium 8.6 mg/dL (8.3-10.6); Calcium (Corrected) 8.6 mg/dL (8.5-10.1); Carbon Dioxide 23.2 mMol/L (20.0-31.0); Chloride 109 mMol/L (98-107); Creatinine (Component) 1.4 mg/dL (0.6-1.3); Globulin 2.5 gm/dL (2.3-3.5); Glucose 198 mg/dL (74-106); Magnesium 1.9 mg/dL (1.6-2.6); Osmolality,Calculated 304 (275-295); Phosphorous 4.1 mg/dL (2.4-5.1); Potassium 3.8 mMol/L (3.4-5.1); Sodium 146 mMol/L (136-145); Total Protein 6.8 gm/dL (5.7-8.2); eGFR 55 See Note
[2025-06-30 07:44] LABS: OBS Card Expiration Date 082828; OBS Card Lot # 0124; OBS Developer Expiration Date 123126; OBS Developer Lot # 224; OBS Performed By ALMAA; OBS QC OK? Yes; Occult Blood, Stool Positive (Negative)
[2025-06-30] MEDS: MAGNESIUM OXIDE 400 MG TABLET PO (08:22)
[2025-06-30] MEDS: ferumoxytoL (NON-ESRD) 510 MG in SODIUM CHLORIDE 0.9% 100 ML 234 MG IV (10:12)
--- NOTE | 2025-06-30 11:46 | PC.SS ---
Patient is a 70 year old male presenting to the hospital for gi bleed. ASSISTANT CHIEF NURSING OFFICER met with patient at bedside. ASSISTANT CHIEF NURSING OFFICER introduced self, role and reason for visit. At bedside was patient?s sister in law named Ya Etienne. Patient gave consent for her to stay in the room. Both are Japanese speaking. Patient started that in case he is unable to make medical decisions on his own he would like Tyler Espinoza to make them [phone]. Ya requested to be another point of contact as she will be providing transportation for patient. Her contact number is [phone]. Patient stated he is on disability, unemployed, does not have DME at home, PCP is Dr. Aj and last appointment was 06/10/25. Patient stated his pharmacy of choice is [facility] [address]. Patient added that once medically clear he would like to return home and Ya will provide transportation. Decision maker: Tyler Espinoza [phone] PCP: Dr. Aj d/c home
--- NOTE | 2025-06-30 11:57 | PC.NURSE ---
Noted facial droop on left side. Patient is able to move eyebrows equally but not his left lip for a smile. Equal strength and movements in all extremities, no other S/S reported. notified and was told he would review patients PMH in regards to his [facility] in 2018. Son is unaware of any deficits from CVA in 2018.
--- NOTE | 2025-06-30 13:16 | ESPR_ITS ---
Documentation for date of: 06/30/25 Subjective Subjective Interval history: Patient seen and examined at bedside; no acute events overnight. Family members state that he drinks 1-2 beers/day currently; however, drank significantly more previously (until 2019). Was somewhat confused (A&Ox1) in AM; however, this improve to A&Ox1-2 around noon. Has L facial droop, but this is from previous CVA deficit documented [place] [address] Stiles. NPO, will have EGD by Dr. Mckeon for GI Bleed. Exam Vital Signs Temp Pulse Resp BP Pulse Ox O2 Del Method 97.8 F 81 21 H 172/113 H 94 L Room Air 06/30/25 08:00 06/30/25 10:12 06/30/25 08:00 06/30/25 10:12 06/30/25 08:00 06/30/25 08:00 Narrative Exam General: A/O x1-2, no acute distress, well-nourished, well-developed Eyes: PERRL, EOMI. Anicteric, vision grossly intact. Ears: No ear pain, no ear discharge, Hearing grossly intact. Nose: No nasal discharge. Mouth/Throat: Moist mucous membranes, no redness, no lesions. L facial droop deficity from 2018. Neck: Neck supple, non-tender, no cervical lymphadenopathy. Lungs: Clear MICHELLE to auscultation and percussion, No accessory muscle use. Cardio: Normal S1/S2, regular rhythm, no murmurs, no JVD or carotid bruits. Abdomen: Soft, non-tender, no palpable masses, peristalsis present, no guarding or rebound. Extremities: Symmetrical, no significant deformities, no peripheral edema , non-tender, peripheral pulses present. Skin: No rashes, no lesions, warm to touch. Neuro: No focal neurological deficits. Psych: Cooperative, appropriate mood and effect. Objective Labs 07/01/25 05:17 07/01/25 05:17 Labs: Laboratory Results - last 24 hr 06/29/25 06/29/25 06/29/25 18:53 19:13 20:43 WBC 12.6 H RBC 3.19 L Hgb 7.6 L Hct 23.0 L MCV 72 L MCH 23.8 L MCHC 33.0 RDW Std Deviation 50.4 H Plt Count 229 Neut % (Auto) 82 H Lymph % (Auto) 9 L [place] % (Auto) 8 Eos % (Auto) 0 Baso % (Auto) 0 Neut # (Auto) 10.4 H Lymph # (Auto) 1.1 [place] # (Auto) 1.0 H Eos # (Auto) 0.0 Baso # (Auto) 0.0 Immature Gran # (Auto) 0.06 H Absolute Nucleated RBC 0.00 Immature Gran % 1 H Nucleated RBC % 0 PT 11.5 INR 1.1 APTT 24.2 Sodium 143 Potassium 4.4 Chloride 105 Carbon Dioxide 20.3 Anion Gap 18 H BUN 36 H Creatinine 1.6 H Estim Creat Clear Calc Not Performed. eGFR 47 L BUN/Creatinine Ratio 23 H Glucose [address] Glu mg/dL Hemoglobin A1c Calculated Osmolality 298 H Lactic Acid Calcium 9.2 Corrected Calcium 9.2 Phosphorus Magnesium Iron TIBC Iron Saturation Unsat Iron Binding Total Bilirubin 0.5 AST 31 ALT 12 Alkaline Phosphatase 58 Total Creatine Kinase 683 H Troponin I 0.044 Total Protein 7.2 Albumin 4.5 Globulin 2.7 Albumin/Globulin Ratio 1.7 Ur Collection Type Clean Catch Urine Color [place] A Urine Clarity Turbid A Urine pH 5.0 Ur Specific [place] 1.015 Urine Protein 1+ A Urine Glucose (UA) Negative Urine Ketones Negative Urine Blood 3+ A Urine Nitrite Positive Urine Bilirubin Negative Urine Urobilinogen (Auto) Negative Ur Leukocyte Esterase Positive Urine RBC < 1 Urine WBC < 1 Ur Squamous Epith Cells 0 Urine Bacteria None Stool Occult Blood Positive A Blood Type O Positive Antibody Screen NEGATIVE Crossmatch See Detail Blood Bank Wristband ID Yes 06/29/25 06/30/25 06/30/25 21:40 01:01 02:53 WBC 8.3 RBC 3.22 L Hgb 7.6 L 7.7 L Hct 24.0 L 24.1 L MCV 75 L MCH 23.9 L MCHC 32.0 RDW Std Deviation 53.7 H Plt Count 187 D Neut % (Auto) 80 Lymph % (Auto) 9 L [place] % (Auto) 10 Eos % (Auto) 0 Baso % (Auto) 0 Neut # (Auto) 6.6 Lymph # (Auto) 0.8 L [place] # (Auto) 0.9 H Eos # (Auto) 0.0 Baso # (Auto) 0.0 Immature Gran # (Auto) 0.04 H Absolute Nucleated RBC 0.00 Immature Gran % 1 H Nucleated RBC % 0 PT INR APTT Sodium 146 H Potassium 3.8 D Chloride 109 H Carbon Dioxide 23.2 Anion Gap 14 BUN 36 H Creatinine 1.4 H Estim Creat Clear Calc Not Performed. eGFR 55 L BUN/Creatinine Ratio 26 H Glucose [address] Glu mg/dL 212 H Hemoglobin A1c 9.0 H Calculated Osmolality 304 H Lactic Acid 2.6 H 1.7 1.9 Calcium 8.6 Corrected Calcium 8.6 Phosphorus 4.1 Magnesium 1.9 Iron 21 L TIBC 338 Iron Saturation 6 L Unsat Iron Binding 317 H Total Bilirubin 0.6 AST 38 H ALT 12 Alkaline Phosphatase 54 Total Creatine Kinase Troponin I Total Protein 6.8 Albumin 4.3 Globulin 2.5 Albumin/Globulin Ratio 1.7 Ur Collection Type Urine Color Urine Clarity Urine pH Ur Specific [place] Urine Protein Urine Glucose (UA) Urine Ketones Urine Blood Urine Nitrite Urine Bilirubin Urine Urobilinogen (Auto) Ur Leukocyte Esterase Urine RBC Urine WBC Ur Squamous Epith Cells Urine Bacteria Stool Occult Blood Blood Type Antibody Screen Crossmatch Blood Bank Wristband ID Quality Measures Quality Measures VTE prophylaxis Advance care planning discussed with:: other Assessment & Plan Assessment Current Active Medications: Generic Name Dose Route Start Last Admin Trade Name Freq PRN Reason Stop Dose Admin Acetaminophen 650 mg 06/29/25 21:20 Acetaminophen 325 Mg Tablet PO 07/29/25 21:19 Q6H PRN Fever >101.5 or pain 1-3 Amlodipine Besylate 10 mg 06/30/25 09:00 06/30/25 10:12 Amlodipine Besylate 5 Mg Tablet PO 07/30/25 08:59 10 mg QDAY SCOTTY Administration Dextrose 25 ml 06/29/25 21:32 Dextrose 50%-Water Inj 50 Ml Syringe IV 07/29/25 21:31 Q15MIN PRN BG 50-70 responsive npo pt Dextrose 50 ml 06/29/25 21:32 Dextrose 50%-Water Inj 50 Ml Syringe IV 07/29/25 21:31 Q15MIN PRN BG <50 OR BG <70 & pt unresponsive Diazepam 5 mg 06/29/25 21:24 Diazepam Inj 5 Mg/Ml Vial 2 Ml IVP X1 PRN Breakthrough Agitation Folic Acid 1 mg 07/01/25 09:00 Folic Acid 1 Mg Tablet PO 07/06/25 08:59 BID SCOTTY Glucagon 1 mg 06/29/25 21:32 Glucagon Inj 1 Mg Vial IM Q15MIN PRN BG <70, and no IV access Octreotide Acetate 1,000 mcg/ 102 mls @ 5.1 mls/hr 06/29/25 18:33 06/29/25 19:40 Sodium Chloride IV 07/04/25 18:33 50 mcg/hr .Q20H SCOTTY 5.1 mls/hr Protocol Administration 50 MCG/HR Lactated Ringer's 1,000 mls @ 100 mls/hr 06/29/25 21:34 Lactated Ringers IV 06/30/25 17:33 .Q10H SCOTTY Ceftriaxone Sodium/Dextrose 1 gm in 50 mls @ 100 mls/hr 06/30/25 21:00 Rocephin/D5w 1gm Iv Premix IV 07/07/25 20:59 HS [facility] Insulin Human Lispro 0 unit 06/30/25 07:30 06/30/25 12:00 Insulin Lispro (Admelog) 1 Unit/0.01 Ml Unit SC 07/30/25 07:29 Not Given Q6HR [facility] Protocol Labetalol HCl 10 mg 06/30/25 01:24 Labetalol Inj 5 Mg/Ml Vial 4 Ml IVP 07/30/25 01:29 Q2H PRN SBP >180 Lorazepam 0.5 mg 06/29/25 21:24 Lorazepam 0.5 Mg Tablet PO 07/04/25 21:23 Q4HR PRN CIWA Score 2-6 Lorazepam 1 mg 06/29/25 21:24 Lorazepam 0.5 Mg Tablet PO 07/04/25 21:23 Q4HR PRN CIWA SCORE 7-11 Lorazepam 2 mg 06/29/25 21:24 Lorazepam 0.5 Mg Tablet PO 07/04/25 21:23 Q4HR PRN CIWA SCORE 12-15 Ondansetron HCl 4 mg 06/29/25 21:20 Ondansetron Inj 2 Mg/Ml Inj 2 Ml IVP 07/29/25 21:19 Q6H PRN NAUSEA OR VOMITING Protocol Pantoprazole Sodium 40 mg 06/30/25 09:00 06/30/25 08:22 Pantoprazole Inj 40 Mg Vial IVP 07/30/25 08:59 40 mg BID SCOTTY Administration Thiamine HCl 100 mg 07/01/25 09:00 Thiamine 100 Mg Tablet PO 07/06/25 08:59 BID SCOTTY Plan Patient is a 70-year-old male with PMH of T2DM, HTN, AUD, diverticulosis, hemorrhoids, CVA (2017) and status post right knee replacement (08/27/2019) who presented to [facility] ED on 06/29 from home for generalized weakness and dark bloody bowel movement. Patient was admitted for management of GI bleed. #GI bleed, more likely lower than upper #Acute anemia, microcytic #History of diverticulosis with diverticular bleeding #History of internal hemorrhoids On admission, patient was noted to have mildly dark red crusted blood surrounding his rectum and gluteal region. Previous colonoscopies 2018 and 2018 show hemorrhoids and diverticulosis; endoscopy 2018 shows moderate gastritis and distal esophagitis. Hgb on admission 7.6 with MCV 72; post 1 unit transfused hgb 7.7; Iron 21, tibc 338, fe saturation 6, unsat iron binding 317 Plan: GI consulted, will get EGD; patient made MPO 1 unit pRBCs transferred Protonix 40 mg twice daily Octreotide drip Ceftriaxone 1 g daily for GI bleed infection prophylaxis (06/29?) #Chronic alcohol use #Alcohol withdrawal? Patient endorses a longstanding history of alcohol use. The patient's last drink noted to be 4on 06/28. Liver u/s negative of cholelithiasis, cholecystitis, postiive for mild hepatomegaly Plan: [facility] protocol Folic acid 1 mg twice daily Thiamine 100 mg twice daily #Acute kidney injury, likely prerenal #Uremia #HAGMA #Lactic acidosis Patient noted to have elevated creatinine from baseline of 0.9-1.0 on admission. Likely secondary to acute GI bleed. Creatinine on admission 1.6; today 1.4. Lactic acid on admission 2.6; today 1.9 Plan: IV fluid resuscitation Avoid nephrotoxic drugs, renally dose medications Lactic acidosis likely contributed to by alcohol consumption and possible metformin use (pending med rec) #Leukocytosis, likely reactive (resolved) Patient found to have WBC of 12.6 on admission. No systemic symptoms. Likely reactive from his diarrhea and active GI bleed. WBC 8.3 today #Type 2 diabetes mellitus, not insulin-dependent? Restarted patient history. Prescription records does not show any insulin prescription, so patient is most likely not insulin-dependent, pending med rec. A1c 9.0. Plan: Sliding scale insulin Bedside glucose checks every 6 hours due to n.p.o. #History of hypertension, primary Patient does have history of hypertension, to which the patient does not know what he takes. Patient states that he did not take his medication on the morning before he was admitted. Plan: amlodipine 10 mg daily, carvedilol 12.5 mg twice daily #History of right knee osteoarthritis #Status post right knee total arthroplasty Patient noted to have this procedure done back in 08/27/2019. According to outside pharmacy data, the patient recently had a refill of his naproxen, however the patient denies taking any NSAIDs. Plan: If patient is taking naproxen at home, will recommend cessation until further evaluation outpatient once stabilized and discharged DVT Prophylaxis: SCDs GI Prophylaxis: Protonix Bowel: N/A Diet: NPO Bent[place]: N/A Lines: PIV Antibiotics: Ceftriaxone This case was discussed with my attending physician, Dr. Pedroza, and senior resident, Dr. Patel. Obdulio Tay, PGY1 Senior Resident Attestation: I discussed with and supervised the environmental engineering intern physician involved in the care of this patient. I personally saw and examined the patient and discussed the assessment and plan with the entire medicine team, including my attending. I agree with the assessment and plan as documented above. Vinicio Patel MD PGY3 Internal Medicine Attending Provider Attestation/Addendum 70-year-old male with diabetes, uncontrolled hypertension, alcohol use disorder, history of diverticulosis was admitted for GI bleed. He is pending workup by Dr. Mckeon. The patient is on octreotide drip and IV pantoprazole. He is not tachycardic although he takes carvedilol at home. I discussed with and supervised the resident physician who took care of this patient. I agree with the assessment and plan as above.
[2025-06-30] MEDS: OCTREOTIDE ACET INJ 1,000 MCG in SODIUM CHLORIDE 0.9% 100 ML 5.1 MCG IV (13:42)
[2025-06-30] MEDS: NA SU/NAHCO3/KC/PEG (Golytely) 4,000 ML BTL 4000 ML PO (17:29)
--- NOTE | 2025-06-30 17:46 | PC.NURSE ---
Med rec not completed due to patient being confused and son not being able to verify if patient is currently taking hydrocortisone.
[2025-06-30] MEDS: cefTRIAXone/D5w 1gm IV premix 1 GM/50 ML BAG IV (20:21)
[2025-06-30] MEDS: INSULIN LISPRO (AdmeLOG) 1 UNIT/0.01 ML UNIT SC (23:55)
[2025-07-01] VITALS (19 sets, daily range): BP systolic 136–191; BP diastolic 70–96; PULSE 59–81; RESP 12–96; TEMP 36.1–37.9; O2SAT 92–100; BMI 28.9
[2025-07-01 06:25] LABS: Basophils # (Auto) 0.0 Thou/mm3 (0.0-0.2); Basophils % (Auto) 0 % (0-2.5); Eosinophils # (Auto) 0.0 Thou/mm3 (0.0-0.5); Eosinophils % (Auto) 0 % (0-10); Hematocrit 24.2 % (41.0-53.0); Immature Granulocytes Auto 0.04 Thou/mm3 (0.00-0.00); Lymphocytes # (Auto) 0.9 Thou/mm3 (1.0-4.8); Lymphocytes % (Auto) 17 % (10-50); Mean Corpuscular HGB Conc 31.8 g/dl (31.0-37.0); Mean Corpuscular Hemoglobin 24.2 pg (25.0-35.0); Mean Corpuscular Volume 76 fL (80-100); Monocytes # (Auto) 0.8 Thou/mm3 (0.0-0.8); Monocytes % (Auto) 14 % (0-12); Neutrophils # (Auto) 3.7 Thou/mm3 (1.8-7.7); Neutrophils % (Auto) 67 % (37-80); Nucleated Red Blood Cell # 0.02 Thou/mm3 (0.00-0.00); Nucleated Red Blood Cell % 0 /100 WBC (0); Platelet Count 175 Thou/mm3 (140-440); RDW Standard Deviation 54.8 fL (35.1-43.9); Red Blood Count 3.18 Miln/mm3 (4.50-5.90); White Blood Count 5.5 Thou/mm3 (3.8-10.6)
[2025-07-01 06:33] LABS: Hemoglobin 7.7 g/dL (13.5-16.0)
[2025-07-01 07:02] LABS: Alanine Aminotransferase 16 U/L (10-49); Albumin, Serum 4.3 gm/dL (3.4-4.8); Albumin/Globulin Ratio 1.7 (1.2-2.2); Alkaline Phosphatase 51 U/L (46-116); Anion Gap 13 (7-16); Aspartate Amino Transferase 54 U/L (0-34); BUN/Creatinine Ratio 18 Ratio (12-20); Bilirubin,Total 0.6 mg/dL (0.3-1.2); Blood Urea Nitrogen 20 mg/dL (9-23); Calcium 8.8 mg/dL (8.3-10.6); Calcium (Corrected) 8.8 mg/dL (8.5-10.1); Carbon Dioxide 27.3 mMol/L (20.0-31.0); Chloride 111 mMol/L (98-107); Creatinine (Component) 1.1 mg/dL (0.6-1.3); Globulin 2.6 gm/dL (2.3-3.5); Glucose 162 mg/dL (74-106); Magnesium 1.9 mg/dL (1.6-2.6); Osmolality,Calculated 306 (275-295); Phosphorous 1.8 mg/dL (2.4-5.1); Potassium 3.4 mMol/L (3.4-5.1); Sodium 151 mMol/L (136-145); Total Protein 6.9 gm/dL (5.7-8.2); eGFR > 60 See Note
[2025-07-01] MEDS: THIAMINE 100 MG TABLET PO ×2 (08:56→21:23)
[2025-07-01] MEDS: FOLIC ACID 1 MG TABLET PO ×2 (08:56→21:23)
[2025-07-01] MEDS: LOSARTAN POTASSIUM 25 MG TABLET 100 MG PO (08:56)
[2025-07-01] MEDS: POT PHOS 15 mMol in NS 250 ML 15 MMOL/250 ML BAG 62.5 MMOL IV ×2 (08:58→13:10)
--- NOTE | 2025-07-01 09:35 | ESPR_ITS ---
<Statement entered by Ned Salter MD - 07/01/25 15:59> I saw and examined patient personally and supervised PGY 1 resident, Dr. Tay with formulating a management plan. I agree with the documentation with the exceptions as listed below. Patient currently undergoing bowel preparation for colonoscopy tonight with Dr. Mckeon. Blood pressure was elevated at 164/79 and restarted home dose of losartan. Sodium 151 and gave 1 L of D5/half NS. Plan of care discussed with Attending Dr. Charbel Salter MD PGY 2 Disclaimer: This note was dictated by speech recognition. Minor errors in roving marker may be present due to voice recognition software. Documentation for date of: 07/01/25 Subjective Subjective Interval history: Patient seen and examined at bedside; no acute events overnight. Had EGD, which showed gastric ulcers, but not enough to account for previous symptoms. Exam Vital Signs Temp Pulse Resp BP Pulse Ox O2 Del Method O2 Flow Rate 100.3 F 67 18 164/79 H 96 Room Air 3 07/01/25 08:00 07/01/25 08:56 07/01/25 08:00 07/01/25 08:56 07/01/25 08:00 07/01/25 08:00 06/30/25 16:25 Narrative Exam General: A/O x1-2, no acute distress, well-nourished, well-developed Eyes: PERRL, EOMI. Anicteric, vision grossly intact. Ears: No ear pain, no ear discharge, Hearing grossly intact. Nose: No nasal discharge. Mouth/Throat: Moist mucous membranes, no redness, no lesions. L facial droop deficit from 2018. Neck: Neck supple, non-tender, no cervical lymphadenopathy. Lungs: Clear MICHELLE to auscultation and percussion, No accessory muscle use. Cardio: Normal S1/S2, regular rhythm, no murmurs, no JVD or carotid bruits. Abdomen: Soft, non-tender, no palpable masses, peristalsis present, no guarding or rebound. Extremities: Symmetrical, no significant deformities, no peripheral edema, non- tender, peripheral pulses present. Skin: No rashes, no lesions, warm to touch. Neuro: No focal neurological deficits. Psych: Cooperative, appropriate mood and effect. Objective Labs 07/01/25 05:17 07/01/25 05:17 Labs: Laboratory Results - last 24 hr 07/01/25 05:17 WBC 5.5 RBC 3.18 L Hgb 7.7 L Hct 24.2 L MCV 76 L MCH 24.2 L MCHC 31.8 RDW Std Deviation 54.8 H Plt Count 175 Neut % (Auto) 67 Lymph % (Auto) 17 [place] % (Auto) 14 H Eos % (Auto) 0 Baso % (Auto) 0 Neut # (Auto) 3.7 Lymph # (Auto) 0.9 L [place] # (Auto) 0.8 Eos # (Auto) 0.0 Baso # (Auto) 0.0 Immature Gran # (Auto) 0.04 H Absolute Nucleated RBC 0.02 H Immature Gran % 1 H Nucleated RBC % 0 Sodium 151 H Potassium 3.4 Chloride 111 H Carbon Dioxide 27.3 Anion Gap 13 BUN 20 Creatinine 1.1 Estim Creat Clear Calc Not Performed. eGFR > 60 BUN/Creatinine Ratio 18 Glucose 162 H Calculated Osmolality 306 H Calcium 8.8 Corrected Calcium 8.8 Phosphorus 1.8 L Magnesium 1.9 Total Bilirubin 0.6 AST 54 H ALT 16 Alkaline Phosphatase 51 Total Protein 6.9 Albumin 4.3 Globulin 2.6 Albumin/Globulin Ratio 1.7 Quality Measures Quality Measures VTE prophylaxis Advance care planning discussed with:: other Assessment & Plan Assessment Current Active Medications: Generic Name Dose Route Start Last Admin Trade Name Freq PRN Reason Stop Dose Admin Acetaminophen 650 mg 06/29/25 21:20 Acetaminophen 325 Mg Tablet PO 07/29/25 21:19 Q6H PRN Fever >101.5 or pain 1-3 Amlodipine Besylate 10 mg 06/30/25 09:00 07/01/25 08:56 Amlodipine Besylate 5 Mg Tablet PO 07/30/25 08:59 10 mg QDAY SCOTTY Administration Carvedilol 12.5 mg 06/30/25 17:30 07/01/25 08:55 Carvedilol 12.5 Mg Tablet PO 07/30/25 17:29 12.5 mg BIDWM SCOTTY Administration Dextrose 25 ml 06/29/25 21:32 Dextrose 50%-Water Inj 50 Ml Syringe IV 07/29/25 21:31 Q15MIN PRN BG 50-70 responsive npo pt Dextrose 50 ml 06/29/25 21:32 Dextrose 50%-Water Inj 50 Ml Syringe IV 07/29/25 21:31 Q15MIN PRN BG <50 OR BG <70 & pt unresponsive Diazepam 5 mg 06/29/25 21:24 Diazepam Inj 5 Mg/Ml Vial 2 Ml IVP X1 PRN Breakthrough Agitation Folic Acid 1 mg 07/01/25 09:00 07/01/25 08:56 Folic Acid 1 Mg Tablet PO 07/06/25 08:59 1 mg BID SCOTTY Administration Glucagon 1 mg 06/29/25 21:32 Glucagon Inj 1 Mg Vial IM Q15MIN PRN BG <70, and no IV access Octreotide Acetate 1,000 mcg/ 102 mls @ 5.1 mls/hr 06/29/25 18:33 06/30/25 13:42 Sodium Chloride IV 07/04/25 18:33 50 mcg/hr .Q20H SCOTTY 5.1 mls/hr Protocol Administration 50 MCG/HR Ceftriaxone Sodium/Dextrose 1 gm in 50 mls @ 100 mls/hr 06/30/25 21:00 06/30/25 20:21 Rocephin/D5w 1gm Iv Premix IV 07/07/25 20:59 100 mls/hr HS SCOTTY Administration Potassium Phosphate 15 mmol in 250 mls @ 62.5 mls/hr 07/01/25 07:31 07/01/25 08:58 Pot Phos 15 Mmol In Ns 250 Ml IV 07/01/25 15:30 62.5 mls/hr Q4H SCOTTY Administration Dextrose/Sodium Chloride 1,000 mls @ 100 mls/hr 07/01/25 08:58 D5-1/2ns IV 07/01/25 18:57 .Q10H ONE Insulin Human Lispro 0 unit 06/30/25 07:30 07/01/25 05:45 Insulin Lispro (Admelog) 1 Unit/0.01 Ml Unit SC 07/30/25 07:29 Not Given Q6HR SCOTTY Protocol Labetalol HCl 10 mg 06/30/25 01:24 Labetalol Inj 5 Mg/Ml Vial 4 Ml IVP 07/30/25 01:29 Q2H PRN SBP >180 Lorazepam 0.5 mg 06/29/25 21:24 Lorazepam 0.5 Mg Tablet PO 07/04/25 21:23 Q4HR PRN CIWA Score 2-6 Lorazepam 1 mg 06/29/25 21:24 Lorazepam 0.5 Mg Tablet PO 07/04/25 21:23 Q4HR PRN CIWA SCORE 7-11 Lorazepam 2 mg 06/29/25 21:24 Lorazepam 0.5 Mg Tablet PO 07/04/25 21:23 Q4HR PRN CIWA SCORE 12-15 Losartan Potassium 100 mg 07/01/25 09:00 07/01/25 08:56 Losartan Potassium 25 Mg Tablet PO 07/31/25 08:59 100 mg QDAY SCOTTY Administration Ondansetron HCl 4 mg 06/29/25 21:20 Ondansetron Inj 2 Mg/Ml Inj 2 Ml IVP 07/29/25 21:19 Q6H PRN NAUSEA OR VOMITING Protocol Pantoprazole Sodium 40 mg 06/30/25 09:00 07/01/25 08:56 Pantoprazole Inj 40 Mg Vial IVP 07/30/25 08:59 40 mg BID SCOTTY Administration Thiamine HCl 100 mg 07/01/25 09:00 07/01/25 08:56 Thiamine 100 Mg Tablet PO 07/06/25 08:59 100 mg BID SCOTTY Administration Plan Patient is a 70-year-old male with PMH of T2DM, HTN, AUD, diverticulosis, hemorrhoids, CVA (2017) and status post right knee replacement (08/27/2019) who presented to [facility] ED on 06/29 from home for generalized weakness and dark bloody bowel movement. Patient was admitted for management of GI bleed. #GI bleed, more likely lower than upper #Acute anemia, microcytic #History of diverticulosis with diverticular bleeding #History of internal hemorrhoids On admission, patient was noted to have mildly dark red crusted blood surrounding his rectum and gluteal region. Previous colonoscopies 2018 and 2019 show hemorrhoids and diverticulosis; endoscopy 2018 shows moderate gastritis and distal esophagitis. Hgb on admission 7.6 with MCV 72; post 1 unit transfused hgb 7.7; Iron 21, tibc 338, fe saturation 6, unsat iron binding 317 Plan: EGD negative, getting colonscopy tonight 1 unit pRBCs transferred Protonix 40 mg twice daily Octreotide drip Ceftriaxone 1 g daily for GI bleed infection prophylaxis (06/29?) #Chronic alcohol use #Alcohol withdrawal? Patient endorses a longstanding history of alcohol use. The patient's last drink noted to be 4on 06/28. Liver u/s negative of cholelithiasis, cholecystitis, postiive for mild hepatomegaly Plan: [facility] protocol Folic acid 1 mg twice daily Thiamine 100 mg twice daily #Acute kidney injury, likely prerenal #Uremia #HAGMA #Lactic acidosis Patient noted to have elevated creatinine from baseline of 0.9-1.0 on admission. Likely secondary to acute GI bleed. Creatinine on admission 1.6; today 1.4. Lactic acid on admission 2.6; today 1.9 Plan: IV fluid resuscitation Avoid nephrotoxic drugs, renally dose medications #Leukocytosis, likely reactive (resolved) Patient found to have WBC of 12.6 on admission. No systemic symptoms. Likely reactive from his diarrhea and active GI bleed. WBC 8.3 today #Type 2 diabetes mellitus, not insulin-dependent? Restarted patient history. Prescription records does not show any insulin prescription, so patient is most likely not insulin-dependent, pending med rec. A1c 9.0. Plan: Sliding scale insulin Bedside glucose checks every 6 hours due to n.p.o. #History of hypertension, primary Patient does have history of hypertension, to which the patient does not know what he takes. Patient states that he did not take his medication on the morning before he was admitted. Plan: amlodipine 10 mg daily, carvedilol 12.5 mg twice daily, losartan 100mg daily #History of right knee osteoarthritis #Status post right knee total arthroplasty Patient noted to have this procedure done back in 08/27/2019. According to outside pharmacy data, the patient recently had a refill of his naproxen, however the patient denies taking any NSAIDs. Plan: If patient is taking naproxen at home, will recommend cessation until further evaluation outpatient once stabilized and discharged DVT Prophylaxis: SCDs GI Prophylaxis: Protonix Bowel: N/A Diet: NPO Bentley: N/A Lines: PIV Antibiotics: Ceftriaxone This case was discussed with my attending physician, Dr. Pedroza, and senior resident, Dr. Salter. Obdulio Tay, PGY1 Attending Provider Attestation/Addendum 70-year-old male with diabetes, uncontrolled hypertension, alcohol use disorder, history of diverticulosis was admitted for GI bleed. He has esophageal varices, pending colonoscopy. Hb stable and he is aert and oriented. The patient is on octreotide drip and IV pantoprazole. He is not tachycardic although he takes carvedilol at home. I discussed with and supervised the resident physician who took care of this patient. I agree with the assessment and plan as above.
[2025-07-01] MEDS: DEXTROSE 5%-0.45% NS 1,000 ML 100 ML IV (10:14)
[2025-07-01] MEDS: INSULIN LISPRO (AdmeLOG) 1 UNIT/0.01 ML UNIT SC (12:22)
--- NOTE | 2025-07-01 12:26 | PC.SS ---
Update: Plan is for colonoscopy today. Dr. Mckeon consulting.
[2025-07-01] MEDS: OCTREOTIDE ACET INJ 1,000 MCG in SODIUM CHLORIDE 0.9% 100 ML 5.1 MCG IV (13:10)
[2025-07-01 19:08] LABS: Alanine Aminotransferase 19 U/L (10-49); Albumin, Serum 4.4 gm/dL (3.4-4.8); Albumin/Globulin Ratio 1.6 (1.2-2.2); Alkaline Phosphatase 54 U/L (46-116); Anion Gap 12 (7-16); Aspartate Amino Transferase 56 U/L (0-34); BUN/Creatinine Ratio 10 Ratio (12-20); Bilirubin,Total 0.5 mg/dL (0.3-1.2); Blood Urea Nitrogen 10 mg/dL (9-23); Calcium 8.6 mg/dL (8.3-10.6); Calcium (Corrected) 8.6 mg/dL (8.5-10.1); Carbon Dioxide 25.0 mMol/L (20.0-31.0); Chloride 112 mMol/L (98-107); Creatinine (Component) 1.0 mg/dL (0.6-1.3); Estimated Creatinine Clearance 70.9 mL/min (>60); Globulin 2.7 gm/dL (2.3-3.5); Glucose 150 mg/dL (74-106); Osmolality,Calculated 298 (275-295); Potassium 3.6 mMol/L (3.4-5.1); Sodium 149 mMol/L (136-145); Total Protein 7.1 gm/dL (5.7-8.2); eGFR > 60 See Note
[2025-07-01] MEDS: RINGERS LACTATED 1000 ML 1,000 ML 100 ML IV (21:22)
[2025-07-01] MEDS: cefTRIAXone/D5w 1gm IV premix 1 GM/50 ML BAG IV (21:23)
[2025-07-01 22:22] LABS: Basophils # (Auto) 0.0 Thou/mm3 (0.0-0.2); Basophils % (Auto) 0 % (0-2.5); Eosinophils # (Auto) 0.0 Thou/mm3 (0.0-0.5); Eosinophils % (Auto) 1 % (0-10); Hematocrit 21.9 % (41.0-53.0); Immature Granulocytes Auto 0.06 Thou/mm3 (0.00-0.00); Lymphocytes # (Auto) 1.1 Thou/mm3 (1.0-4.8); Lymphocytes % (Auto) 21 % (10-50); Mean Corpuscular HGB Conc 30.6 g/dl (31.0-37.0); Mean Corpuscular Hemoglobin 23.8 pg (25.0-35.0); Mean Corpuscular Volume 78 fL (80-100); Monocytes # (Auto) 1.0 Thou/mm3 (0.0-0.8); Monocytes % (Auto) 18 % (0-12); Neutrophils # (Auto) 3.1 Thou/mm3 (1.8-7.7); Neutrophils % (Auto) 59 % (37-80); Nucleated Red Blood Cell # 0.05 Thou/mm3 (0.00-0.00); Nucleated Red Blood Cell % 1 /100 WBC (0); Platelet Count 159 Thou/mm3 (140-440); RDW Standard Deviation 57.0 fL (35.1-43.9); Red Blood Count 2.82 Miln/mm3 (4.50-5.90); White Blood Count 5.2 Thou/mm3 (3.8-10.6)
[2025-07-01 22:27] LABS: Hemoglobin 6.7 g/dL (13.5-16.0)
[2025-07-01 23:05] LABS: Path Review Blood Smear Sent to Pathologist
[2025-07-02] VITALS (22 sets, daily range): BP systolic 148–191; BP diastolic 71–91; PULSE 52–84; RESP 14–95; TEMP 36.1–36.9; O2SAT 93–97
[2025-07-02 03:58] LABS: Basophils # (Auto) 0.0 Thou/mm3 (0.0-0.2); Basophils % (Auto) 0 % (0-2.5); Eosinophils # (Auto) 0.1 Thou/mm3 (0.0-0.5); Eosinophils % (Auto) 2 % (0-10); Hematocrit 26.1 % (41.0-53.0); Immature Granulocytes Auto 0.12 Thou/mm3 (0.00-0.00); Lymphocytes # (Auto) 1.1 Thou/mm3 (1.0-4.8); Lymphocytes % (Auto) 22 % (10-50); Mean Corpuscular HGB Conc 32.6 g/dl (31.0-37.0); Mean Corpuscular Hemoglobin 25.2 pg (25.0-35.0); Mean Corpuscular Volume 77 fL (80-100); Monocytes # (Auto) 0.7 Thou/mm3 (0.0-0.8); Monocytes % (Auto) 15 % (0-12); Neutrophils # (Auto) 2.9 Thou/mm3 (1.8-7.7); Neutrophils % (Auto) 59 % (37-80); Nucleated Red Blood Cell # 0.05 Thou/mm3 (0.00-0.00); Nucleated Red Blood Cell % 1 /100 WBC (0); Platelet Count 163 Thou/mm3 (140-440); RDW Standard Deviation 55.4 fL (35.1-43.9); Red Blood Count 3.37 Miln/mm3 (4.50-5.90); White Blood Count 4.9 Thou/mm3 (3.8-10.6)
[2025-07-02 04:01] LABS: Hemoglobin 8.5 g/dL (13.5-16.0)
[2025-07-02 04:23] LABS: Alanine Aminotransferase 18 U/L (10-49); Albumin, Serum 4.2 gm/dL (3.4-4.8); Albumin/Globulin Ratio 1.8 (1.2-2.2); Alkaline Phosphatase 52 U/L (46-116); Anion Gap 12 (7-16); Aspartate Amino Transferase 51 U/L (0-34); BUN/Creatinine Ratio 10 Ratio (12-20); Bilirubin,Total 0.7 mg/dL (0.3-1.2); Blood Urea Nitrogen 9 mg/dL (9-23); Calcium 8.2 mg/dL (8.3-10.6); Calcium (Corrected) 8.2 mg/dL (8.5-10.1); Carbon Dioxide 26.0 mMol/L (20.0-31.0); Chloride 111 mMol/L (98-107); Creatinine (Component) 0.9 mg/dL (0.6-1.3); Estimated Creatinine Clearance 78.8 mL/min (>60); Globulin 2.4 gm/dL (2.3-3.5); Glucose 150 mg/dL (74-106); Magnesium 1.8 mg/dL (1.6-2.6); Osmolality,Calculated 297 (275-295); Phosphorous 2.2 mg/dL (2.4-5.1); Potassium 3.3 mMol/L (3.4-5.1); Sodium 149 mMol/L (136-145); Total Protein 6.6 gm/dL (5.7-8.2); eGFR > 60 See Note
[2025-07-02] MEDS: THIAMINE 100 MG TABLET PO ×2 (08:06→20:48)
[2025-07-02] MEDS: FOLIC ACID 1 MG TABLET PO ×2 (08:06→20:48)
[2025-07-02] MEDS: LOSARTAN POTASSIUM 25 MG TABLET 100 MG PO (08:07)
[2025-07-02] MEDS: POT PHOS 15 mMol in NS 250 ML 15 MMOL/250 ML BAG 62.5 MMOL IV (10:35)
[2025-07-02 12:55] LABS: Basophils # (Auto) 0.0 Thou/mm3 (0.0-0.2); Basophils % (Auto) 1 % (0-2.5); Eosinophils # (Auto) 0.1 Thou/mm3 (0.0-0.5); Eosinophils % (Auto) 2 % (0-10); Hematocrit 28.2 % (41.0-53.0); Hemoglobin 8.9 g/dL (13.5-16.0); Immature Granulocytes Auto 0.10 Thou/mm3 (0.00-0.00); Lymphocytes # (Auto) 1.0 Thou/mm3 (1.0-4.8); Lymphocytes % (Auto) 18 % (10-50); Mean Corpuscular HGB Conc 31.6 g/dl (31.0-37.0); Mean Corpuscular Hemoglobin 24.7 pg (25.0-35.0); Mean Corpuscular Volume 78 fL (80-100); Monocytes # (Auto) 0.7 Thou/mm3 (0.0-0.8); Monocytes % (Auto) 13 % (0-12); Neutrophils # (Auto) 3.6 Thou/mm3 (1.8-7.7); Neutrophils % (Auto) 66 % (37-80); Nucleated Red Blood Cell # 0.07 Thou/mm3 (0.00-0.00); Nucleated Red Blood Cell % 1 /100 WBC (0); Platelet Count 193 Thou/mm3 (140-440); RDW Standard Deviation 55.1 fL (35.1-43.9); Red Blood Count 3.60 Miln/mm3 (4.50-5.90); White Blood Count 5.5 Thou/mm3 (3.8-10.6)
[2025-07-02] MEDS: INSULIN LISPRO (AdmeLOG) 1 UNIT/0.01 ML UNIT SC (13:44)
[2025-07-02] MEDS: OCTREOTIDE ACET INJ 1,000 MCG in SODIUM CHLORIDE 0.9% 100 ML 5.1 MCG IV (14:52)
--- NOTE | 2025-07-02 15:07 | ESPR_ITS ---
<Statement entered by Ned Salter MD - 07/02/25 22:30> I saw and examined patient personally and supervised PGY 1 resident, Dr. Tay with formulating a management plan. I agree with the documentation with the exceptions as listed below. Patient underwent colonoscopy on 07/01 which showed hemorrhoids stigmata of recent diverticular bleed. Patient was transfused 1 unit of FFP and platelets as per GI recommendations. No need for emergent transfer for CTA guided embolization of diverticular bleed as patient currently shows no signs of bleeding and hemoglobin and hematocrit were stable. Will complete octreotide infusion on 07/03 and anticipate discharge within next 24 to 48 hours. Plan of care discussed with Attending Dr. Ashlyn Salter MD PGY 2 Disclaimer: This note was dictated by speech recognition. Minor errors in process development engineer may be present due to voice recognition software. Documentation for date of: 07/02/25 Subjective Subjective Interval history: Patient seen and examined at bedside; no acute events overnight. Colonoscopy showed internal hemorrhoids and diverticulosis. Not having bleeding, so will not pursue transfer for embolization. Exam Vital Signs Temp Pulse Resp BP Pulse Ox O2 Del Method O2 Flow Rate 97.4 F 70 20 157/78 H 93 L Room Air 3 07/02/25 14:30 07/02/25 14:30 07/02/25 14:30 07/02/25 14:30 07/02/25 14:30 07/02/25 12:00 07/02/25 12:05 Narrative Exam General: A/O x1-2, no acute distress, well-nourished, well-developed. Kyrgyz- speaking only. Eyes: PERRL, EOMI. Anicteric, vision grossly intact. Ears: No ear pain, no ear discharge, Hearing grossly intact. Nose: No nasal discharge. Mouth/Throat: Moist mucous membranes, no redness, no lesions. L facial droop deficit from 2018. Neck: Neck supple, non-tender, no cervical lymphadenopathy. Lungs: Clear MICHELLE to auscultation and percussion, No accessory muscle use. Cardio: Normal S1/S2, regular rhythm, no murmurs, no JVD or carotid bruits. Abdomen: Soft, non-tender, no palpable masses, peristalsis present, no guarding or rebound. Extremities: Symmetrical, no significant deformities, no peripheral edema, non- tender, peripheral pulses present. Skin: No rashes, no lesions, warm to touch. Neuro: No focal neurological deficits. Psych: Cooperative, appropriate mood and effect. Objective Labs 07/02/25 18:22 07/02/25 03:45 Labs: Laboratory Results - last 24 hr 06/29/25 07/01/25 07/01/25 19:13 18:30 22:08 WBC 5.2 RBC 2.82 L Hgb 6.7 L* Hct 21.9 L* MCV 78 L MCH 23.8 L MCHC 30.6 L RDW Std Deviation 57.0 H Plt Count 159 Neut % (Auto) 59 Lymph % (Auto) 21 [place] % (Auto) 18 H Eos % (Auto) 1 Baso % (Auto) 0 Neut # (Auto) 3.1 Lymph # (Auto) 1.1 [place] # (Auto) 1.0 H Eos # (Auto) 0.0 Baso # (Auto) 0.0 Immature Gran # (Auto) 0.06 H Absolute Nucleated RBC 0.05 H Immature Gran % 1 H Nucleated RBC % 1 H Smear Path Review Sent to Pathologist Sodium 149 H Potassium 3.6 Chloride 112 H Carbon Dioxide 25.0 Anion Gap 12 BUN 10 Creatinine 1.0 Estim Creat Clear Calc 70.9 eGFR > 60 BUN/Creatinine Ratio 10 L Glucose 150 H Calculated Osmolality 298 H Calcium 8.6 Corrected Calcium 8.6 Phosphorus Magnesium Total Bilirubin 0.5 AST 56 H ALT 19 Alkaline Phosphatase 54 Total Protein 7.1 Albumin 4.4 Globulin 2.7 Albumin/Globulin Ratio 1.6 Blood Type O Positive Antibody Screen NEGATIVE Crossmatch See Detail Blood Bank Wristband ID Yes Blood Bank Comment PLATP Ready 07/02/25 07/02/25 03:45 12:38 WBC 4.9 5.5 RBC 3.37 L 3.60 L Hgb 8.5 L D 8.9 L Hct 26.1 L 28.2 L MCV 77 L 78 L MCH 25.2 24.7 L MCHC 32.6 31.6 RDW Std Deviation 55.4 H 55.1 H Plt Count 163 193 D Neut % (Auto) 59 66 Lymph % (Auto) 22 18 [place] % (Auto) 15 H 13 H Eos % (Auto) 2 2 Baso % (Auto) 0 1 Neut # (Auto) 2.9 3.6 Lymph # (Auto) 1.1 1.0 [place] # (Auto) 0.7 0.7 Eos # (Auto) 0.1 0.1 Baso # (Auto) 0.0 0.0 Immature Gran # (Auto) 0.12 H 0.10 H Absolute Nucleated RBC 0.05 H 0.07 H Immature Gran % 2 H 2 H Nucleated RBC % 1 H 1 H Smear Path Review Sodium 149 H Potassium 3.3 L Chloride 111 H Carbon Dioxide 26.0 Anion Gap 12 BUN 9 Creatinine 0.9 Estim Creat Clear Calc 78.8 eGFR > 60 BUN/Creatinine Ratio 10 L Glucose 150 H Calculated Osmolality 297 H Calcium 8.2 L Corrected Calcium 8.2 L Phosphorus 2.2 L Magnesium 1.8 Total Bilirubin 0.7 AST 51 H ALT 18 Alkaline Phosphatase 52 Total Protein 6.6 Albumin 4.2 Globulin 2.4 Albumin/Globulin Ratio 1.8 Blood Type Antibody Screen Crossmatch Blood Bank Wristband ID Blood Bank Comment Quality Measures Quality Measures VTE prophylaxis Advance care planning discussed with:: other Assessment & Plan Assessment Current Active Medications: Generic Name Dose Route Start Last Admin Trade Name Freq PRN Reason Stop Dose Admin Acetaminophen 650 mg 06/29/25 21:20 Acetaminophen 325 Mg Tablet PO 07/29/25 21:19 Q6H PRN Fever >101.5 or pain 1-3 Amlodipine Besylate 10 mg 06/30/25 09:00 07/02/25 08:06 Amlodipine Besylate 5 Mg Tablet PO 07/30/25 08:59 10 mg QDAY SCOTTY Administration Carvedilol 12.5 mg 06/30/25 17:30 07/02/25 08:06 Carvedilol 12.5 Mg Tablet PO 07/30/25 17:29 12.5 mg BIDWM SCOTTY Administration Dextrose 25 ml 06/29/25 21:32 Dextrose 50%-Water Inj 50 Ml Syringe IV 07/29/25 21:31 Q15MIN PRN BG 50-70 responsive npo pt Dextrose 50 ml 06/29/25 21:32 Dextrose 50%-Water Inj 50 Ml Syringe IV 07/29/25 21:31 Q15MIN PRN BG <50 OR BG <70 & pt unresponsive Diazepam 5 mg 06/29/25 21:24 Diazepam Inj 5 Mg/Ml Vial 2 Ml IVP X1 PRN Breakthrough Agitation Folic Acid 1 mg 07/01/25 09:00 07/02/25 08:06 Folic Acid 1 Mg Tablet PO 07/06/25 08:59 1 mg BID SCOTTY Administration Glucagon 1 mg 06/29/25 21:32 Glucagon Inj 1 Mg Vial IM Q15MIN PRN BG <70, and no IV access Octreotide Acetate 1,000 mcg/ 102 mls @ 5.1 mls/hr 06/29/25 18:33 07/02/25 14:52 Sodium Chloride IV 07/04/25 18:33 50 mcg/hr .Q20H SCOTTY 5.1 mls/hr Protocol Administration 50 MCG/HR Ceftriaxone Sodium/Dextrose 1 gm in 50 mls @ 100 mls/hr 06/30/25 21:00 07/01/25 21:53 Rocephin/D5w 1gm Iv Premix IV 07/07/25 20:59 Infused HS SCOTTY Infusion Insulin Human Lispro 0 unit 06/30/25 07:30 07/02/25 13:44 Insulin Lispro (Admelog) 1 Unit/0.01 Ml Unit SC 07/30/25 07:29 1 unit Q6HR SCOTTY Administration Protocol Labetalol HCl 10 mg 06/30/25 01:24 07/01/25 23:43 Labetalol Inj 5 Mg/Ml Vial 4 Ml IVP 07/30/25 01:29 10 mg Q2H PRN Administration SBP >180 Lorazepam 0.5 mg 06/29/25 21:24 Lorazepam 0.5 Mg Tablet PO 07/04/25 21:23 Q4HR PRN CIWA Score 2-6 Lorazepam 1 mg 06/29/25 21:24 Lorazepam 0.5 Mg Tablet PO 07/04/25 21:23 Q4HR PRN CIWA SCORE 7-11 Lorazepam 2 mg 06/29/25 21:24 Lorazepam 0.5 Mg Tablet PO 07/04/25 21:23 Q4HR PRN CIWA SCORE 12-15 Losartan Potassium 100 mg 07/01/25 09:00 07/02/25 08:07 Losartan Potassium 25 Mg Tablet PO 07/31/25 08:59 100 mg QDAY SCOTTY Administration Ondansetron HCl 4 mg 06/29/25 21:20 Ondansetron Inj 2 Mg/Ml Inj 2 Ml IVP 07/29/25 21:19 Q6H PRN NAUSEA OR VOMITING Protocol Pantoprazole Sodium 40 mg 06/30/25 09:00 07/02/25 08:05 Pantoprazole Inj 40 Mg Vial IVP 07/30/25 08:59 40 mg BID SCOTTY Administration Thiamine HCl 100 mg 07/01/25 09:00 07/02/25 08:06 Thiamine 100 Mg Tablet PO 07/06/25 08:59 100 mg BID SCOTTY Administration Plan Patient is a 70-year-old male with PMH of T2DM, HTN, AUD, diverticulosis, hemorrhoids, CVA (2017) and status post right knee replacement (08/27/2019) who presented to [facility] ED on 06/29 from home for generalized weakness and dark bloody bowel movement. Patient was admitted for management of GI bleed. #GI bleed, more likely lower than upper #Acute anemia, microcytic #History of diverticulosis with diverticular bleeding #History of internal hemorrhoids On admission, patient was noted to have mildly dark red crusted blood surrounding his rectum and gluteal region. Previous colonoscopies 2017 and 2018 show hemorrhoids and diverticulosis; endoscopy 2018 shows moderate gastritis and distal esophagitis. Hgb on admission 7.6 with MCV 72; post 1 unit transfused hgb 7.7; Iron 21, tibc 338, fe saturation 6, unsat iron binding 317 Colonoscopy showed internal hemorrhoids and diverticulosis Plan: EGD negative, getting colonscopy tonight 1 unit pRBCs transferred Protonix 40 mg twice daily Octreotide drip Ceftriaxone 1 g daily for GI bleed infection prophylaxis (06/29?) #Chronic alcohol use #Alcohol withdrawal? Patient endorses a longstanding history of alcohol use. The patient's last drink noted to be 4on 06/28. Liver u/s negative of cholelithiasis, cholecystitis, postiive for mild hepatomegaly Plan: [facility] protocol Folic acid 1 mg twice daily Thiamine 100 mg twice daily #Acute kidney injury, likely prerenal #Uremia #HAGMA #Lactic acidosis Patient noted to have elevated creatinine from baseline of 0.9-1.0 on admission. Likely secondary to acute GI bleed. Creatinine on admission 1.6; today 1.4. Lactic acid on admission 2.6; today 1.9 Plan: IV fluid resuscitation Avoid nephrotoxic drugs, renally dose medications #Leukocytosis, likely reactive (resolved) Patient found to have WBC of 12.6 on admission. No systemic symptoms. Likely reactive from his diarrhea and active GI bleed. WBC 8.3 today #Type 2 diabetes mellitus, not insulin-dependent? Restarted patient history. Prescription records does not show any insulin prescription, so patient is most likely not insulin-dependent, pending med rec. A1c 9.0. Plan: Sliding scale insulin Bedside glucose checks every 6 hours due to n.p.o. #History of hypertension, primary Patient does have history of hypertension, to which the patient does not know what he takes. Patient states that he did not take his medication on the morning before he was admitted. Plan: amlodipine 10 mg daily, carvedilol 12.5 mg twice daily, losartan 100mg daily #History of right knee osteoarthritis #Status post right knee total arthroplasty Patient noted to have this procedure done back in 08/27/2019. According to outside pharmacy data, the patient recently had a refill of his naproxen, however the patient denies taking any NSAIDs. Plan: If patient is taking naproxen at home, will recommend cessation until further evaluation outpatient once stabilized and discharged DVT Prophylaxis: SCDs GI Prophylaxis: Protonix Bowel: N/A Diet: Diabetic clear liquid [place]: N/A Lines: PIV Antibiotics: Ceftriaxone This case was discussed with my attending physician, Dr. Goldberg, and senior resident, Dr. Salter. Obdulio Tay, PGY1 Attending Provider Attestation/Addendum I have discussed and was present for the essential components of the history, physical examination, diagnosis, and treatment plan with the resident. I agree with the patient's care as documented by the resident and amended herein by me. Giovanni Goldberg DO. Although this document has been carefully reviewed, there may still be some phonetic and other typographical errors. These errors are purely grammatical due to imperfections in the software program and should not be construed in any way to compromise the substance of the patient's medical care during this visit.
[2025-07-02 18:51] LABS: Basophils # (Auto) 0.0 Thou/mm3 (0.0-0.2); Basophils % (Auto) 1 % (0-2.5); Eosinophils # (Auto) 0.2 Thou/mm3 (0.0-0.5); Eosinophils % (Auto) 3 % (0-10); Hematocrit 29.8 % (41.0-53.0); Hemoglobin 9.5 g/dL (13.5-16.0); Immature Granulocytes Auto 0.10 Thou/mm3 (0.00-0.00); Lymphocytes # (Auto) 1.1 Thou/mm3 (1.0-4.8); Lymphocytes % (Auto) 19 % (10-50); Mean Corpuscular HGB Conc 31.9 g/dl (31.0-37.0); Mean Corpuscular Hemoglobin 24.9 pg (25.0-35.0); Mean Corpuscular Volume 78 fL (80-100); Monocytes # (Auto) 0.7 Thou/mm3 (0.0-0.8); Monocytes % (Auto) 12 % (0-12); Neutrophils # (Auto) 3.6 Thou/mm3 (1.8-7.7); Neutrophils % (Auto) 64 % (37-80); Nucleated Red Blood Cell # 0.05 Thou/mm3 (0.00-0.00); Nucleated Red Blood Cell % 1 /100 WBC (0); Platelet Count 216 Thou/mm3 (140-440); RDW Standard Deviation 55.3 fL (35.1-43.9); Red Blood Count 3.81 Miln/mm3 (4.50-5.90); White Blood Count 5.7 Thou/mm3 (3.8-10.6)
[2025-07-02] MEDS: cefTRIAXone/D5w 1gm IV premix 1 GM/50 ML BAG IV (20:48)
--- NOTE | 2025-07-02 21:04 | PD.IMPROG ---
Documentation for date of: 07/02/25 Subjective Subjective Interval history: patient evaluated no further bleeding hemoglobin hematocrit 9.5 and 29.8 Start on a full liquid diet Exam Vital Signs Temp Pulse Resp BP Pulse Ox O2 Del Method O2 Flow Rate 97.6 F 64 16 166/87 H 96 Room Air 3 07/02/25 17:57 07/02/25 17:57 07/02/25 17:57 07/02/25 17:57 07/02/25 17:57 07/02/25 16:00 07/02/25 12:05 Objective Labs 07/02/25 18:22 07/02/25 03:45 Labs: Laboratory Results - last 24 hr 06/29/25 07/01/25 07/02/25 19:13 22:08 03:45 WBC 5.2 4.9 RBC 2.82 L 3.37 L Hgb 6.7 L* 8.5 L D Hct 21.9 L* 26.1 L MCV 78 L 77 L MCH 23.8 L 25.2 MCHC 30.6 L 32.6 RDW Std Deviation 57.0 H 55.4 H Plt Count 159 163 Neut % (Auto) 59 59 Lymph % (Auto) 21 22 [place] % (Auto) 18 H 15 H Eos % (Auto) 1 2 Baso % (Auto) 0 0 Neut # (Auto) 3.1 2.9 Lymph # (Auto) 1.1 1.1 [place] # (Auto) 1.0 H 0.7 Eos # (Auto) 0.0 0.1 Baso # (Auto) 0.0 0.0 Immature Gran # (Auto) 0.06 H 0.12 H Absolute Nucleated RBC 0.05 H 0.05 H Immature Gran % 1 H 2 H Nucleated RBC % 1 H 1 H Smear Path Review Sent to Pathologist Sodium 149 H Potassium 3.3 L Chloride 111 H Carbon Dioxide 26.0 Anion Gap 12 BUN 9 Creatinine 0.9 Estim Creat Clear Calc 78.8 eGFR > 60 BUN/Creatinine Ratio 10 L Glucose 150 H Calculated Osmolality 297 H Calcium 8.2 L Corrected Calcium 8.2 L Phosphorus 2.2 L Magnesium 1.8 Total Bilirubin 0.7 AST 51 H ALT 18 Alkaline Phosphatase 52 Total Protein 6.6 Albumin 4.2 Globulin 2.4 Albumin/Globulin Ratio 1.8 Blood Type O Positive Antibody Screen NEGATIVE Crossmatch See Detail Blood Bank Wristband ID Yes Blood Bank Comment PLATP Ready 07/02/25 07/02/25 12:38 18:22 WBC 5.5 5.7 RBC 3.60 L 3.81 L Hgb 8.9 L 9.5 L Hct 28.2 L 29.8 L MCV 78 L 78 L MCH 24.7 L 24.9 L MCHC 31.6 31.9 RDW Std Deviation 55.1 H 55.3 H Plt Count 193 D 216 Neut % (Auto) 66 64 Lymph % (Auto) 18 19 [place] % (Auto) 13 H 12 Eos % (Auto) 2 3 Baso % (Auto) 1 1 Neut # (Auto) 3.6 3.6 Lymph # (Auto) 1.0 1.1 [place] # (Auto) 0.7 0.7 Eos # (Auto) 0.1 0.2 Baso # (Auto) 0.0 0.0 Immature Gran # (Auto) 0.10 H 0.10 H Absolute Nucleated RBC 0.07 H 0.05 H Immature Gran % 2 H 2 H Nucleated RBC % 1 H 1 H Smear Path Review Sodium Potassium Chloride Carbon Dioxide Anion Gap BUN Creatinine Estim Creat Clear Calc eGFR BUN/Creatinine Ratio Glucose Calculated Osmolality Calcium Corrected Calcium Phosphorus Magnesium Total Bilirubin AST ALT Alkaline Phosphatase Total Protein Albumin Globulin Albumin/Globulin Ratio Blood Type Antibody Screen Crossmatch Blood Bank Wristband ID Blood Bank Comment Impressions Impression: Lower GI bleed due to diverticular bleeding Continue to monitor Case discussed with internal medicine resident No need to transfer at the moment Assessment & Plan Time Spent With Patient Time: Total time spent is greater than 50% in coordination of care (as documented) at patient's floor/unit and/or counseling patient:
[2025-07-03] VITALS (10 sets, daily range): BP systolic 116–169; BP diastolic 71–92; PULSE 51–88; RESP 12–97; TEMP 36.2–36.9; O2SAT 94–98; BMI 27.3; BMI 13.0
[2025-07-03 06:18] LABS: Basophils # (Auto) 0.0 Thou/mm3 (0.0-0.2); Basophils % (Auto) 0 % (0-2.5); Eosinophils # (Auto) 0.2 Thou/mm3 (0.0-0.5); Eosinophils % (Auto) 4 % (0-10); Hematocrit 28.3 % (41.0-53.0); Hemoglobin 8.9 g/dL (13.5-16.0); Immature Granulocytes Auto 0.05 Thou/mm3 (0.00-0.00); Lymphocytes # (Auto) 1.0 Thou/mm3 (1.0-4.8); Lymphocytes % (Auto) 21 % (10-50); Mean Corpuscular HGB Conc 31.4 g/dl (31.0-37.0); Mean Corpuscular Hemoglobin 24.7 pg (25.0-35.0); Mean Corpuscular Volume 78 fL (80-100); Monocytes # (Auto) 0.5 Thou/mm3 (0.0-0.8); Monocytes % (Auto) 11 % (0-12); Neutrophils # (Auto) 2.8 Thou/mm3 (1.8-7.7); Neutrophils % (Auto) 62 % (37-80); Nucleated Red Blood Cell # 0.02 Thou/mm3 (0.00-0.00); Nucleated Red Blood Cell % 0 /100 WBC (0); Platelet Count 225 Thou/mm3 (140-440); RDW Standard Deviation 53.5 fL (35.1-43.9); Red Blood Count 3.61 Miln/mm3 (4.50-5.90); White Blood Count 4.6 Thou/mm3 (3.8-10.6)
[2025-07-03 06:49] LABS: Alanine Aminotransferase 19 U/L (10-49); Albumin, Serum 4.5 gm/dL (3.4-4.8); Albumin/Globulin Ratio 1.6 (1.2-2.2); Alkaline Phosphatase 61 U/L (46-116); Anion Gap 13 (7-16); Aspartate Amino Transferase 46 U/L (0-34); BUN/Creatinine Ratio 7 Ratio (12-20); Bilirubin,Total 0.8 mg/dL (0.3-1.2); Blood Urea Nitrogen 7 mg/dL (9-23); Calcium 9.2 mg/dL (8.3-10.6); Calcium (Corrected) 9.2 mg/dL (8.5-10.1); Carbon Dioxide 24.9 mMol/L (20.0-31.0); Chloride 106 mMol/L (98-107); Creatinine (Component) 1.0 mg/dL (0.6-1.3); Estimated Creatinine Clearance 69.1 mL/min (>60); Globulin 2.8 gm/dL (2.3-3.5); Glucose 153 mg/dL (74-106); Magnesium 1.8 mg/dL (1.6-2.6); Osmolality,Calculated 287 (275-295); Phosphorous 2.6 mg/dL (2.4-5.1); Potassium 3.2 mMol/L (3.4-5.1); Sodium 144 mMol/L (136-145); Total Protein 7.3 gm/dL (5.7-8.2); eGFR > 60 See Note
[2025-07-03] MEDS: FOLIC ACID 1 MG TABLET PO ×2 (08:27→20:09)
[2025-07-03] MEDS: THIAMINE 100 MG TABLET PO ×2 (08:27→20:09)
[2025-07-03] MEDS: LOSARTAN POTASSIUM 25 MG TABLET 100 MG PO (08:28)
--- NOTE | 2025-07-03 10:16 | PD.RESPRO ---
Documentation for date of: 07/03/25 Exam Vital Signs Temp Pulse Resp BP Pulse Ox O2 Del Method O2 Flow Rate 97.2 F 82 18 169/77 H 94 L Room Air 3 07/03/25 08:00 07/03/25 08:28 07/03/25 08:00 07/03/25 08:28 07/03/25 08:00 07/03/25 08:00 07/02/25 12:05 Objective Labs 07/03/25 05:15 07/03/25 05:15 Labs: Laboratory Results - last 24 hr 06/29/25 07/02/25 07/02/25 19:13 12:38 18:22 WBC 5.5 5.7 RBC 3.60 L 3.81 L Hgb 8.9 L 9.5 L Hct 28.2 L 29.8 L MCV 78 L 78 L MCH 24.7 L 24.9 L MCHC 31.6 31.9 RDW Std Deviation 55.1 H 55.3 H Plt Count 193 D 216 Neut % (Auto) 66 64 Lymph % (Auto) 18 19 [place] % (Auto) 13 H 12 Eos % (Auto) 2 3 Baso % (Auto) 1 1 Neut # (Auto) 3.6 3.6 Lymph # (Auto) 1.0 1.1 [place] # (Auto) 0.7 0.7 Eos # (Auto) 0.1 0.2 Baso # (Auto) 0.0 0.0 Immature Gran # (Auto) 0.10 H 0.10 H Absolute Nucleated RBC 0.07 H 0.05 H Immature Gran % 2 H 2 H Nucleated RBC % 1 H 1 H Sodium Potassium Chloride Carbon Dioxide Anion Gap BUN Creatinine Estim Creat Clear Calc eGFR BUN/Creatinine Ratio Glucose Calculated Osmolality Calcium Corrected Calcium Phosphorus Magnesium Total Bilirubin AST ALT Alkaline Phosphatase Total Protein Albumin Globulin Albumin/Globulin Ratio Blood Type O Positive Antibody Screen NEGATIVE Crossmatch See Detail Blood Bank Wristband ID Yes Blood Bank Comment PLATP Ready 07/03/25 05:15 WBC 4.6 RBC 3.61 L Hgb 8.9 L Hct 28.3 L MCV 78 L MCH 24.7 L MCHC 31.4 RDW Std Deviation 53.5 H Plt Count 225 Neut % (Auto) 62 Lymph % (Auto) 21 [place] % (Auto) 11 Eos % (Auto) 4 Baso % (Auto) 0 Neut # (Auto) 2.8 Lymph # (Auto) 1.0 [place] # (Auto) 0.5 Eos # (Auto) 0.2 Baso # (Auto) 0.0 Immature Gran # (Auto) 0.05 H Absolute Nucleated RBC 0.02 H Immature Gran % 1 H Nucleated RBC % 0 Sodium 144 Potassium 3.2 L Chloride 106 Carbon Dioxide 24.9 Anion Gap 13 BUN 7 L Creatinine 1.0 Estim Creat Clear Calc 69.1 eGFR > 60 BUN/Creatinine Ratio 7 L Glucose 153 H Calculated Osmolality 287 Calcium 9.2 Corrected Calcium 9.2 Phosphorus 2.6 Magnesium 1.8 Total Bilirubin 0.8 AST 46 H ALT 19 Alkaline Phosphatase 61 Total Protein 7.3 Albumin 4.5 Globulin 2.8 Albumin/Globulin Ratio 1.6 Blood Type Antibody Screen Crossmatch Blood Bank Wristband ID Blood Bank Comment Quality Measures Quality Measures VTE prophylaxis Assessment & Plan Assessment Current Active Medications: Generic Name Dose Route Start Last Admin Trade Name Freq PRN Reason Stop Dose Admin Acetaminophen 650 mg 06/29/25 21:20 Acetaminophen 325 Mg Tablet PO 07/29/25 21:19 Q6H PRN Fever >101.5 or pain 1-3 Amlodipine Besylate 10 mg 06/30/25 09:00 07/03/25 08:28 Amlodipine Besylate 5 Mg Tablet PO 07/30/25 08:59 10 mg QDAY SCOTTY Administration Carvedilol 12.5 mg 06/30/25 17:30 07/03/25 08:28 Carvedilol 12.5 Mg Tablet PO 07/30/25 17:29 12.5 mg BIDWM SCOTTY Administration Dextrose 25 ml 06/29/25 21:32 Dextrose 50%-Water Inj 50 Ml Syringe IV 07/29/25 21:31 Q15MIN PRN BG 50-70 responsive npo pt Dextrose 50 ml 06/29/25 21:32 Dextrose 50%-Water Inj 50 Ml Syringe IV 07/29/25 21:31 Q15MIN PRN BG <50 OR BG <70 & pt unresponsive Diazepam 5 mg 06/29/25 21:24 Diazepam Inj 5 Mg/Ml Vial 2 Ml IVP X1 PRN Breakthrough Agitation Folic Acid 1 mg 07/01/25 09:00 07/03/25 08:27 Folic Acid 1 Mg Tablet PO 07/06/25 08:59 1 mg BID SCOTTY Administration Glucagon 1 mg 06/29/25 21:32 Glucagon Inj 1 Mg Vial IM Q15MIN PRN BG <70, and no IV access Insulin Human Lispro 0 unit 06/30/25 07:30 07/03/25 05:29 Insulin Lispro (Admelog) 1 Unit/0.01 Ml Unit SC 07/30/25 07:29 Not Given Q6HR SCOTTY Protocol Labetalol HCl 10 mg 06/30/25 01:24 07/01/25 23:43 Labetalol Inj 5 Mg/Ml Vial 4 Ml IVP 07/30/25 01:29 10 mg Q2H PRN Administration SBP >180 Lorazepam 0.5 mg 06/29/25 21:24 Lorazepam 0.5 Mg Tablet PO 07/04/25 21:23 Q4HR PRN CIWA Score 2-6 Lorazepam 1 mg 06/29/25 21:24 Lorazepam 0.5 Mg Tablet PO 07/04/25 21:23 Q4HR PRN CIWA SCORE 7-11 Lorazepam 2 mg 06/29/25 21:24 Lorazepam 0.5 Mg Tablet PO 07/04/25 21:23 Q4HR PRN CIWA SCORE 12-15 Losartan Potassium 100 mg 07/01/25 09:00 07/03/25 08:28 Losartan Potassium 25 Mg Tablet PO 07/31/25 08:59 100 mg QDAY SCOTTY Administration Ondansetron HCl 4 mg 06/29/25 21:20 Ondansetron Inj 2 Mg/Ml Inj 2 Ml IVP 07/29/25 21:19 Q6H PRN NAUSEA OR VOMITING Protocol Pantoprazole Sodium 40 mg 06/30/25 09:00 07/03/25 08:29 Pantoprazole Inj 40 Mg Vial IVP 07/30/25 08:59 40 mg BID SCOTTY Administration Thiamine HCl 100 mg 07/01/25 09:00 07/03/25 08:27 Thiamine 100 Mg Tablet PO 07/06/25 08:59 100 mg BID SCOTTY Administration
[2025-07-03] MEDS: INSULIN LISPRO (AdmeLOG) 1 UNIT/0.01 ML UNIT SC (11:38)
--- NOTE | 2025-07-03 12:20 | PC.SS ---
SS attempted to contact patient's son, Rene Espinoza, phone# [phone] but phone# is not in service. SS has also attempted to contact patient's son, Tyler Espinoza, phone# [phone] but number is incorrect. SS met with pt at bedside and bedside nurse, Tara was speaking with Ya Etienne, phone# [phone] and explained SS and Rn are having difficulty contacting patient's sons. Ya states she is patient's sister in law and she provided patient's son, Tyler's phone [phone]. SS has spoken to patient's son, Tyler Espinoza, phone# [phone] who is requesting pt dc to SNF. Per sister in law, Ya pt resides alone and was independent with ADLs prior to being hospitalized. Per Ya, pt was also alert/oriented at home. Ya pt is unable to ambulate, confused, and incontinent. Son and family is unable to care for pt at home. SS has sent inquiry to the local SNF using [facility]. SS has contacted patient registration to update patient's facesheet with his son's correct phone# [phone]. SS provided verbal choices for SNF and son's choice is [facility].
--- NOTE | 2025-07-03 12:53 | PC.CC ---
PASRR Level 1 complete and downloaded; Level 2 not required.
--- NOTE | 2025-07-03 13:48 | ESPR_ITS ---
<Statement entered by Ned Salter MD - 07/03/25 16:56> I saw and examined patient personally and supervised PGY 1 resident, Dr. Tay with formulating a management plan. I agree with the documentation with the exceptions as listed below. Patient was medically cleared for discharge today, however he developed hospital delirium and his family members refused to take him home. Physical therapy evaluation was ordered for SNF placement. Patient completed octreotide infusion today. Once a facility is found for the patient anticipate discharge within the next 24 to 48 hours. Plan of care discussed with Attending Dr. Ashlyn Salter MD PGY 2 Disclaimer: This note was dictated by speech recognition. Minor errors in mechanical ordnance assembler may be present due to voice recognition software. Documentation for date of: 07/03/25 Subjective Subjective Interval history: Patient seen and examined at bedside; no acute events overnight. Octreotide finished; waiting for PT eval for SNF. Exam Vital Signs Temp Pulse Resp BP Pulse Ox O2 Del Method O2 Flow Rate 97.4 F 55 L 17 153/71 H 98 Room Air 3 07/03/25 12:00 07/03/25 12:07/03/25 12:07/03/25 12:07/03/25 12:07/03/25 12:00 07/02/25 12:05 Narrative Exam General: A/O x1-2, no acute distress, well-nourished, well-developed. Hebrew- speaking only. Eyes: PERRL, EOMI. Anicteric, vision grossly intact. Ears: No ear pain, no ear discharge, Hearing grossly intact. Nose: No nasal discharge. Mouth/Throat: Moist mucous membranes, no redness, no lesions. L facial droop deficit from 2018. Neck: Neck supple, non-tender, no cervical lymphadenopathy. Lungs: Clear MICHELLE to auscultation and percussion, No accessory muscle use. Cardio: Normal S1/S2, regular rhythm, no murmurs, no JVD or carotid bruits. Abdomen: Soft, non-tender, no palpable masses, peristalsis present, no guarding or rebound. Extremities: Symmetrical, no significant deformities, no peripheral edema, non- tender, peripheral pulses present. Skin: No rashes, no lesions, warm to touch. Neuro: No focal neurological deficits. Psych: Cooperative, appropriate mood and effect. Objective Labs 07/03/25 05:15 07/03/25 05:15 Labs: Laboratory Results - last 24 hr 06/29/25 07/02/25 07/03/25 19:13 18:22 05:15 WBC 5.7 4.6 RBC 3.81 L 3.61 L Hgb 9.5 L 8.9 L Hct 29.8 L 28.3 L MCV 78 L 78 L MCH 24.9 L 24.7 L MCHC 31.9 31.4 RDW Std Deviation 55.3 H 53.5 H Plt Count 216 225 Neut % (Auto) 64 62 Lymph % (Auto) 19 21 [place] % (Auto) 12 11 Eos % (Auto) 3 4 Baso % (Auto) 1 0 Neut # (Auto) 3.6 2.8 Lymph # (Auto) 1.1 1.0 [place] # (Auto) 0.7 0.5 Eos # (Auto) 0.2 0.2 Baso # (Auto) 0.0 0.0 Immature Gran # (Auto) 0.10 H 0.05 H Absolute Nucleated RBC 0.05 H 0.02 H Immature Gran % 2 H 1 H Nucleated RBC % 1 H 0 Sodium 144 Potassium 3.2 L Chloride 106 Carbon Dioxide 24.9 Anion Gap 13 BUN 7 L Creatinine 1.0 Estim Creat Clear Calc 69.1 eGFR > 60 BUN/Creatinine Ratio 7 L Glucose 153 H Calculated Osmolality 287 Calcium 9.2 Corrected Calcium 9.2 Phosphorus 2.6 Magnesium 1.8 Total Bilirubin 0.8 AST 46 H ALT 19 Alkaline Phosphatase 61 Total Protein 7.3 Albumin 4.5 Globulin 2.8 Albumin/Globulin Ratio 1.6 Blood Type O Positive Antibody Screen NEGATIVE Crossmatch See Detail Blood Bank Wristband ID Yes Blood Bank Comment PLATP Ready Quality Measures Quality Measures VTE prophylaxis Advance care planning discussed with:: other Assessment & Plan Assessment Current Active Medications: Generic Name Dose Route Start Last Admin Trade Name Freq PRN Reason Stop Dose Admin Acetaminophen 650 mg 06/29/25 21:20 Acetaminophen 325 Mg Tablet PO 07/29/25 21:19 Q6H PRN Fever >101.5 or pain 1-3 Amlodipine Besylate 10 mg 06/30/25 09:00 07/03/25 08:28 Amlodipine Besylate 5 Mg Tablet PO 07/30/25 08:59 10 mg QDAY SCOTTY Administration Carvedilol 12.5 mg 06/30/25 17:30 07/03/25 08:28 Carvedilol 12.5 Mg Tablet PO 07/30/25 17:29 12.5 mg BIDWM SCOTTY Administration Dextrose 25 ml 06/29/25 21:32 Dextrose 50%-Water Inj 50 Ml Syringe IV 07/29/25 21:31 Q15MIN PRN BG 50-70 responsive npo pt Dextrose 50 ml 06/29/25 21:32 Dextrose 50%-Water Inj 50 Ml Syringe IV 07/29/25 21:31 Q15MIN PRN BG <50 OR BG <70 & pt unresponsive Diazepam 5 mg 06/29/25 21:24 Diazepam Inj 5 Mg/Ml Vial 2 Ml IVP X1 PRN Breakthrough Agitation Folic Acid 1 mg 07/01/25 09:00 07/03/25 08:27 Folic Acid 1 Mg Tablet PO 07/06/25 08:59 1 mg BID SCOTTY Administration Glucagon 1 mg 06/29/25 21:32 Glucagon Inj 1 Mg Vial IM Q15MIN PRN BG <70, and no IV access Insulin Human Lispro 0 unit 06/30/25 07:30 07/03/25 11:38 Insulin Lispro (Admelog) 1 Unit/0.01 Ml Unit SC 07/30/25 07:29 1 unit Q6HR SCOTTY Administration Protocol Labetalol HCl 10 mg 06/30/25 01:24 07/01/25 23:43 Labetalol Inj 5 Mg/Ml Vial 4 Ml IVP 07/30/25 01:29 10 mg Q2H PRN Administration SBP >180 Lorazepam 0.5 mg 06/29/25 21:24 Lorazepam 0.5 Mg Tablet PO 07/04/25 21:23 Q4HR PRN CIWA Score 2-6 Lorazepam 1 mg 06/29/25 21:24 Lorazepam 0.5 Mg Tablet PO 07/04/25 21:23 Q4HR PRN CIWA SCORE 7-11 Lorazepam 2 mg 06/29/25 21:24 Lorazepam 0.5 Mg Tablet PO 07/04/25 21:23 Q4HR PRN CIWA SCORE 12-15 Losartan Potassium 100 mg 07/01/25 09:00 07/03/25 08:28 Losartan Potassium 25 Mg Tablet PO 07/31/25 08:59 100 mg QDAY SCOTTY Administration Ondansetron HCl 4 mg 12/13/25 21:20 Ondansetron Inj 2 Mg/Ml Inj 2 Ml IVP 07/29/25 21:19 Q6H PRN NAUSEA OR VOMITING Protocol Pantoprazole Sodium 40 mg 06/30/25 09:00 07/03/25 08:29 Pantoprazole Inj 40 Mg Vial IVP 07/30/25 08:59 40 mg BID SCOTTY Administration Thiamine HCl 100 mg 07/01/25 09:00 07/03/25 08:27 Thiamine 100 Mg Tablet PO 07/06/25 08:59 100 mg BID SCOTTY Administration Plan Patient is a 70-year-old male with PMH of T2DM, HTN, AUD, diverticulosis, hemorrhoids, CVA (2017) and status post right knee replacement (08/27/2019) who presented to [facility] ED on 06/29 from home for generalized weakness and dark bloody bowel movement. Patient was admitted for management of GI bleed. #GI bleed, more likely lower than upper #Acute anemia, microcytic #History of diverticulosis with diverticular bleeding #History of internal hemorrhoids On admission, patient was noted to have mildly dark red crusted blood surrounding his rectum and gluteal region. Previous colonoscopies 2018 and 2019 show hemorrhoids and diverticulosis; endoscopy 2018 shows moderate gastritis and distal esophagitis. Hgb on admission 7.6 with MCV 72; post 1 unit transfused hgb 7.7; Iron 21, tibc 338, fe saturation 6, unsat iron binding 317 Colonoscopy showed internal hemorrhoids and diverticulosis Plan: Protonix 40 mg twice daily Waiting for PT eval for SNF #Chronic alcohol use #Alcohol withdrawal? Patient endorses a longstanding history of alcohol use. The patient's last drink noted to be 4on 06/28. Liver u/s negative of cholelithiasis, cholecystitis, postiive for mild hepatomegaly Plan: [facility] protocol Folic acid 1 mg twice daily Thiamine 100 mg twice daily #Acute kidney injury, likely prerenal #Uremia #HAGMA #Lactic acidosis Patient noted to have elevated creatinine from baseline of 0.9-1.0 on admission. Likely secondary to acute GI bleed. Creatinine on admission 1.6; today 1.4. Lactic acid on admission 2.6; today 1.9 Plan: IV fluid resuscitation Avoid nephrotoxic drugs, renally dose medications #Leukocytosis, likely reactive (resolved) Patient found to have WBC of 12.6 on admission. No systemic symptoms. Likely reactive from his diarrhea and active GI bleed. WBC 8.3 today #Type 2 diabetes mellitus, not insulin-dependent? Restarted patient history. Prescription records does not show any insulin prescription, so patient is most likely not insulin-dependent, pending med rec. A1c 9.0. Plan: Sliding scale insulin Bedside glucose checks every 6 hours due to n.p.o. #History of hypertension, primary Patient does have history of hypertension, to which the patient does not know what he takes. Patient states that he did not take his medication on the morning before he was admitted. Plan: amlodipine 10 mg daily, carvedilol 12.5 mg twice daily, losartan 100mg daily #History of right knee osteoarthritis #Status post right knee total arthroplasty Patient noted to have this procedure done back in 08/27/2019. According to outside pharmacy data, the patient recently had a refill of his naproxen, however the patient denies taking any NSAIDs. Plan: If patient is taking naproxen at home, will recommend cessation until further evaluation outpatient once stabilized and discharged DVT Prophylaxis: SCDs GI Prophylaxis: Protonix Bowel: N/A Diet: Diabetic clear liquid [place]: N/A Lines: PIV Antibiotics: Ceftriaxone This case was discussed with my attending physician, Dr. Goldberg, and senior resident, Dr. Salter. Obdulio Tay, PGY1 Attending Provider Attestation/Addendum I have discussed and was present for the essential components of the history, physical examination, diagnosis, and treatment plan with the resident. I agree with the patient's care as documented by the resident and amended herein by me. Giovanni Goldberg DO. Although this document has been carefully reviewed, there may still be some phonetic and other typographical errors. These errors are purely grammatical due to imperfections in the software program and should not be construed in any way to compromise the substance of the patient's medical care during this visit.
--- NOTE | 2025-07-03 19:50 | PD.IMPROG ---
Documentation for date of: 07/03/25 Subjective Subjective Interval history: Slight drop in hemoglobin to 8.5 but no signs of any active bleeding Exam Vital Signs Temp Pulse Resp BP Pulse Ox O2 Del Method O2 Flow Rate 97.7 F 60 16 151/92 H 95 Room Air 3 07/03/25 16:00 07/03/25 17:25 07/03/25 16:00 07/03/25 17:25 07/03/25 16:00 07/03/25 16:00 07/02/25 12:05 Objective Labs 07/03/25 05:15 07/03/25 05:15 Labs: Laboratory Results - last 24 hr 07/03/25 05:15 WBC 4.6 RBC 3.61 L Hgb 8.9 L Hct 28.3 L MCV 78 L MCH 24.7 L MCHC 31.4 RDW Std Deviation 53.5 H Plt Count 225 Neut % (Auto) 62 Lymph % (Auto) 21 [place] % (Auto) 11 Eos % (Auto) 4 Baso % (Auto) 0 Neut # (Auto) 2.8 Lymph # (Auto) 1.0 [place] # (Auto) 0.5 Eos # (Auto) 0.2 Baso # (Auto) 0.0 Immature Gran # (Auto) 0.05 H Absolute Nucleated RBC 0.02 H Immature Gran % 1 H Nucleated RBC % 0 Sodium 144 Potassium 3.2 L Chloride 106 Carbon Dioxide 24.9 Anion Gap 13 BUN 7 L Creatinine 1.0 Estim Creat Clear Calc 69.1 eGFR > 60 BUN/Creatinine Ratio 7 L Glucose 153 H Calculated Osmolality 287 Calcium 9.2 Corrected Calcium 9.2 Phosphorus 2.6 Magnesium 1.8 Total Bilirubin 0.8 AST 46 H ALT 19 Alkaline Phosphatase 61 Total Protein 7.3 Albumin 4.5 Globulin 2.8 Albumin/Globulin Ratio 1.6 Impressions Impression: Diverticular GI bleeding Relatively stable hemoglobin hematocrit at this some drop may be a collaboration Continue to monitor CBC Assessment & Plan Time Spent With Patient Time: Total time spent is greater than 50% in coordination of care (as documented) at patient's floor/unit and/or counseling patient:
[2025-07-04] VITALS (11 sets, daily range): BP systolic 114–175; BP diastolic 66–81; PULSE 56–68; RESP 16–98; TEMP 36.1–37.1; O2SAT 94–98; BMI 27.8
[2025-07-04] MEDS: hydrALAZINE INJ 20 MG/ML VIAL 10 MG IVP (00:08)
[2025-07-04 05:35] LABS: Basophils # (Auto) 0.0 Thou/mm3 (0.0-0.2); Basophils % (Auto) 1 % (0-2.5); Eosinophils # (Auto) 0.2 Thou/mm3 (0.0-0.5); Eosinophils % (Auto) 4 % (0-10); Hematocrit 29.6 % (41.0-53.0); Hemoglobin 9.4 g/dL (13.5-16.0); Immature Granulocytes Auto 0.04 Thou/mm3 (0.00-0.00); Lymphocytes # (Auto) 0.9 Thou/mm3 (1.0-4.8); Lymphocytes % (Auto) 19 % (10-50); Mean Corpuscular HGB Conc 31.8 g/dl (31.0-37.0); Mean Corpuscular Hemoglobin 24.9 pg (25.0-35.0); Mean Corpuscular Volume 78 fL (80-100); Monocytes # (Auto) 0.5 Thou/mm3 (0.0-0.8); Monocytes % (Auto) 11 % (0-12); Neutrophils # (Auto) 3.0 Thou/mm3 (1.8-7.7); Neutrophils % (Auto) 64 % (37-80); Nucleated Red Blood Cell # 0.00 Thou/mm3 (0.00-0.00); Nucleated Red Blood Cell % 0 /100 WBC (0); Platelet Count 248 Thou/mm3 (140-440); RDW Standard Deviation 54.3 fL (35.1-43.9); Red Blood Count 3.78 Miln/mm3 (4.50-5.90); White Blood Count 4.7 Thou/mm3 (3.8-10.6)
[2025-07-04 06:10] LABS: Alanine Aminotransferase 18 U/L (10-49); Albumin, Serum 4.3 gm/dL (3.4-4.8); Albumin/Globulin Ratio 1.5 (1.2-2.2); Alkaline Phosphatase 60 U/L (46-116); Anion Gap 12 (7-16); Aspartate Amino Transferase 41 U/L (0-34); BUN/Creatinine Ratio 11 Ratio (12-20); Bilirubin,Total 0.9 mg/dL (0.3-1.2); Blood Urea Nitrogen 11 mg/dL (9-23); Calcium 9.0 mg/dL (8.3-10.6); Calcium (Corrected) 9.0 mg/dL (8.5-10.1); Carbon Dioxide 21.0 mMol/L (20.0-31.0); Chloride 109 mMol/L (98-107); Creatinine (Component) 1.0 mg/dL (0.6-1.3); Estimated Creatinine Clearance 69.7 mL/min (>60); Globulin 2.9 gm/dL (2.3-3.5); Glucose 138 mg/dL (74-106); Magnesium 1.6 mg/dL (1.6-2.6); Osmolality,Calculated 284 (275-295); Phosphorous 2.9 mg/dL (2.4-5.1); Potassium 3.4 mMol/L (3.4-5.1); Sodium 142 mMol/L (136-145); Total Protein 7.2 gm/dL (5.7-8.2); eGFR > 60 See Note
[2025-07-04] MEDS: LOSARTAN POTASSIUM 25 MG TABLET 100 MG PO (08:44)
[2025-07-04] MEDS: THIAMINE 100 MG TABLET PO (08:44)
[2025-07-04] MEDS: MAGNESIUM OXIDE 400 MG TABLET PO (08:44)
[2025-07-04] MEDS: FOLIC ACID 1 MG TABLET PO (08:44)
--- NOTE | 2025-07-04 09:07 | PC.SS ---
SS has sent PT notes to [employer] using [facility] for insurance authorization. SS has spoken to Nicole from [employer] who states she will start insurance authorization.
--- NOTE | 2025-07-04 12:46 | ESDS_ITS ---
<Statement entered by Ned Salter MD - 07/04/25 15:13> I saw and examined patient personally and supervised PGY 1 resident, Dr. Tay with formulating a discharge plan. I agree with the documentation as listed below. Plan of care discussed with Attending Dr. Kathleen Salter MD PGY 2 Disclaimer: This note was dictated by speech recognition. Minor errors in real estate consultant may be present due to voice recognition software. Planned Discharge Date 07/04/25 DS: Providers Provider Date of admission: 06/29/25 21:48 Primary care physician: Jean Marie Robledo MD Admitting Provider: Betsy Gallardo MD Attending Provider on Admission: Prasanna Goldberg DO Consults: 06/29/25 20:11 Consult to Gastroenterology Stat Comment: UGIB Consulting Provider: Keesha Mckeon 07/03/25 11:47 Referral Physical Therapy Routine Comment: Physician Instructions: Instructions: for placement Attending Provider on DC: Rupa Wang MD Discharging Provider: Rupa Wang MD DS: Diagnosis Problem List Completed Was Problem List Reviewed/Reconciled?: Yes Hospital Course Hospital Course Hospital course: Hospital Course: Patient 70-year-old male with significant PMH of DM, HTN, CVA, diverticulosis, chronic inactive gastritis, chronic alcoholic, hx of upper GI bleed in 2019 with last colonoscopy from 2019 showing hemorrhoids, diverticulosis, upper GI endoscopy in 2018 showing moderate gastritis, distal esophagitis presented on 06/29 with chief complaint of bleeding per rectum. Admitted for upper GI bleed, RAFFI and started on octreotide. On 06/30, EGD showed minimal esophageal varices. On 07/01, colonoscopy showed internal hemorrhoids and diverticulosis with recent bleeding; no need for transfer as no current signs of bleeding. On 07/03, octreotide finished but patient developed hospital-acquired delirium. On 07/04, delirium had resolved and patient was stable for discharge. Discharge Instructions: - You Have been started on folic acid and thiamine. - Stop drinking alcohol. - Do not take NSAIDS, aspirin or spicy food. - Eat more greens and drink more water. - Follow up with Dr. Mckeon within 2 weeks of discharge for diverticulosis. - Follow up with your primary care physician within 1 week of discharge. If you do not have a primary care physician, please follow up with the [facility] Residents clinic ([phone]) ? If you experience any new, worsening or persistent symptoms either call your primary doctor, or dial 911 or present to the emergency department. Problem List: #GI bleed, more likely lower than upper #Acute anemia, microcytic #History of diverticulosis with diverticular bleeding #History of internal hemorrhoids #Chronic alcohol use #Alcohol withdrawal? #Acute kidney injury, likely prerenal #Uremia #HAGMA #Lactic acidosis #Leukocytosis, likely reactive (resolved) #Type 2 diabetes mellitus, not insulin-dependent? #History of hypertension, primary #History of right knee osteoarthritis #Status post right knee total arthroplasty Status at Discharge Functional status at discharge: bed bound Overall status at discharge: patient is progressing back to baseline Time Spent with Patient Time attestation: Total time spent providing and/or coordinating discharge services: 39 minutes Time spent: Greater than 30 minutes Exam Vital Signs Temp Pulse Resp BP Pulse Ox O2 Del Method O2 Flow Rate 97.8 F 59 L 18 129/73 96 Room Air 3 07/04/25 11:19 07/04/25 11:19 07/04/25 11:19 07/04/25 11:19 07/04/25 11:19 07/04/25 04:00 07/02/25 12:05 Narrative Exam General: A/O x1-2, no acute distress, well-nourished, well-developed. Eritrean- speaking only. Eyes: PERRL, EOMI. Anicteric, vision grossly intact. Ears: No ear pain, no ear discharge, Hearing grossly intact. Nose: No nasal discharge. Mouth/Throat: Moist mucous membranes, no redness, no lesions. L facial droop deficit from 2018. Neck: Neck supple, non-tender, no cervical lymphadenopathy. Lungs: Clear MICHELLE to auscultation and percussion, No accessory muscle use. Cardio: Normal S1/S2, regular rhythm, no murmurs, no JVD or carotid bruits. Abdomen: Soft, non-tender, no palpable masses, peristalsis present, no guarding or rebound. Extremities: Symmetrical, no significant deformities, no peripheral edema, non- tender, peripheral pulses present. Skin: No rashes, no lesions, warm to touch. Neuro: No focal neurological deficits. Psych: Cooperative, appropriate mood and effect. Discharge Plan Plan Patient Disposition: Xfer Skilled Nsg Fac (SNF) Patient condition on transfer: Stable and Benefits outweigh risks Care Plan Goals: - you Have been started on folic acid and thiamine. - Stop drinking alcohol. - Do not take NSAIDS, aspirin or spicy food. - Eat more greens and drink more water. - Follow up with Dr. Mckeon within 2 weeks of discharge for diverticulosis. - Follow up with your primary care physician within 1 week of discharge. If you do not have a primary care physician, please follow up with the [facility] Residents clinic ([phone]) ? If you experience any new, worsening or persistent symptoms either call your primary doctor, or dial 911 or present to the emergency department. Prescriptions/Referrals Prescriptions/Med Rec: New folic acid 1 mg Tablet 1 mg PO BID 30 Days Qty: 60 0RF thiamine mononitrate (vit B1) 100 mg Tablet 100 mg PO BID 30 Days Qty: 60 0RF Continued metformin 500 mg Tablet 1,000 mg PO BID carvedilol 6.25 mg Tablet 12.5 mg PO BID losartan 100 mg Tablet 100 mg PO QDAY amlodipine 10 mg tablet 10 mg PO DAILY omeprazole 20 mg capsule,delayed release(DR/EC) 20 mg PO DAILY hydrochlorothiazide 25 mg tablet 25 mg PO DAILY Januvia 50 mg tablet 50 mg PO DAILY Rybelsus 3 mg tablet 3 mg PO DAILY Discontinued hydrocodone-acetaminophen 10-325 mg Tablet 1 tab PO Q6H MDD 6 PRN (Reason: Pain) Qty: 40 0RF Xarelto 10 mg Tablet 10 mg PO Q24H Qty: 12 0RF docusate sodium [DOK] 250 mg Capsule 250 mg PO QDAY naproxen 500 mg tablet 500 mg PO Q2H PRN (Reason: pain) Referrals: Jean Marie Robledo MD [Primary Care Provider, Family Practice] Patient/Caregiver Discharge Instructions Education Materials: Diverticulosis Diverticulitis, Addiction Ask These Questions, Addiction Recovery Counseling Print Language: Eritrean Stand Alone Forms: Tiffanie Award Info., Patient Portal Info Letter Discharge Order Discharge Orders: Discharge (Routine); Ordered 07/04/25 Ordered By: Ned Salter Quality Discharge Quality Measures none Attestestation MD Attestation I have seen and examined the patient. I was physically present for the [place]o portions of the services provided including history, physical exam, diagnosis, treatment plans and orders. I agree with assessment and plan of care as documented by residents. Even though this this note was carefully revised there may still be minor errors in real estate consultant due to voice recognition software. Rupa Wang MD
--- NOTE | 2025-07-04 13:00 | PC.SS ---
SS received call from Klarissa a hospital sales representative from patient's health insurance who states she has received inquiry but requires PT notes. SS has faxed PT notes. Insurance authorization is pending for [facility]. Per Klarissa, she will provide her security site supervisor with PT notes.
--- NOTE | 2025-07-04 15:18 | PC.SS ---
Addendum entered by Bailee Cedeno 07/04/25 16:05: SS confirmed with New from [employer], phone#[phone] and transport is set for 7:30pm to [facility]. Original Note: SS spoke to Joan from [employer] who states patient's account is not active with [employer]. Per Joan, she has verified with the eligibility department and they are not the transportation vendor. SS has contacted New from [employer] and will follow up if transport is available for 7:30pm to [facility]. Nicole from [facility] is aware. Son, Tyler Espinoza is aware. Bedside nurse, Deepa is aware.
--- NOTE | 2025-07-04 18:08 | PC.NURSE ---
gave report to bibi at [facility]
--- NOTE | 2025-07-04 19:07 | PD.IMPROG ---
Documentation for date of: 07/04/25 Subjective Subjective Interval history: Late entry for the note Hemoglobin hematocrit 9.4 and 29.6 Diverticular bleeding has stopped Okay to discharge to be followed by the PCP Exam Vital Signs Temp Pulse Resp BP Pulse Ox O2 Del Method O2 Flow Rate 98.3 F 60 18 114/66 94 L Room Air 3 07/04/25 15:40 07/04/25 17:13 07/04/25 15:40 07/04/25 17:13 07/04/25 15:40 07/04/25 04:00 07/02/25 12:05 Objective Labs 07/04/25 05:08 07/04/25 05:10 Labs: Laboratory Results - last 24 hr 07/04/25 07/04/25 05:08 05:10 WBC 4.7 RBC 3.78 L Hgb 9.4 L Hct 29.6 L MCV 78 L MCH 24.9 L MCHC 31.8 RDW Std Deviation 54.3 H Plt Count 248 Neut % (Auto) 64 Lymph % (Auto) 19 [place] % (Auto) 11 Eos % (Auto) 4 Baso % (Auto) 1 Neut # (Auto) 3.0 Lymph # (Auto) 0.9 L [place] # (Auto) 0.5 Eos # (Auto) 0.2 Baso # (Auto) 0.0 Immature Gran # (Auto) 0.04 H Absolute Nucleated RBC 0.00 Immature Gran % 1 H Nucleated RBC % 0 Sodium 142 Potassium 3.4 Chloride 109 H Carbon Dioxide 21.0 Anion Gap 12 BUN 11 Creatinine 1.0 Estim Creat Clear Calc 69.7 eGFR > 60 BUN/Creatinine Ratio 11 L Glucose 138 H Calculated Osmolality 284 Calcium 9.0 Corrected Calcium 9.0 Phosphorus 2.9 Magnesium 1.6 Total Bilirubin 0.9 AST 41 H ALT 18 Alkaline Phosphatase 60 Total Protein 7.2 Albumin 4.3 Globulin 2.9 Albumin/Globulin Ratio 1.5 Impressions Impression: Diverticular bleeding colonic stopped on its own Diet instructions No GI follow-up necessary Follow-up with the PCP Assessment & Plan A&P Narrative # Acute GI bleed in the form of melena and the patient with previous history of alcohol consumption Suggestions Initial test fiberoptic esophagogastroduodenoscopy possible therapeutic intervention under intravenous moderate sedation consent obtained and placed-schedule In case the EGD is negative we will consider doing a fiberoptic colonoscopy prior to discharge Thank you very much for the opportunity to participate in the care of this patient other medical problems include diabetes mellitus type 2 essential hypertension CVA Time Spent With Patient Time: Total time spent is greater than 50% in coordination of care (as documented) at patient's floor/unit and/or counseling patient:
== END 2025-07-04 19:11 | disposition skilled nursing facility (03) | DRG 378 ==
LOC: SERX 20:42 → SERHOLD 21:52 → S2NX 22:59 → S3SX 07-03 20:39
PROVIDERS: Nurse Practitioner Family; Specialist; Admitting Provider Student in an Organized Health Care Education/Training Program; Emergency Provider Emergency Medicine; PCP Family Medicine; Visit Provider Student in an Organized Health Care Education/Training Program
PROC: (CPT 43239; principal; 2025-06-30 13:45)
PROC: 0DJD8ZZ Inspection of Lower Intestinal Tract, Via Natural or Artificial Opening Endoscopic (ICD-10-PCS; CPT 45378; principal; 2025-07-01 16:00)
DX: K25.4 Chronic or unspecified gastric ulcer with hemorrhage (principal); D62 Acute posthemorrhagic anemia; N17.9 Acute kidney failure, unspecified; E87.20 Acidosis, unspecified; I47.20 Ventricular tachycardia, unspecified; K57.31 Diverticulosis of large intestine without perforation or abscess with bleeding; I10 Essential (primary) hypertension; I69.392 Facial weakness following cerebral infarction; I69.30 Unspecified sequelae of cerebral infarction; D72.829 Elevated white blood cell count, unspecified; M17.11 Unilateral primary osteoarthritis, right knee; K64.1 Second degree hemorrhoids; D50.9 Iron deficiency anemia, unspecified; F10.10 Alcohol abuse, uncomplicated; E11.65 Type 2 diabetes mellitus with hyperglycemia; Z96.651 Presence of right artificial knee joint
CPT/HCPCS: 36415; 76705; 80053; 81001; 82270; 82550; 83036; 83540; 83550; 83605; 83735; 84100; 84484; 85014; 85018; 85025; 85610; 85730; 86850; 86900; 86901; 86902; 86921; 86922; 86927; 86965; 93005; 93225; 96361; 96365; 96366; 96375; 97162; 99283; A4649; J0360; J0696; J1200; J1815; J1920; J2250; J2354; J2470; J3010; J3411; J7042; J7050; J7120; J7999; P9016; P9035; P9060; Q0138; A9270